=== PATIENT | male | born 1960 | race Caucasian/White ===

== ENCOUNTER 2018-02-01 09:44 | Emergency (ER) | payer OTHER ==
[~2018-02-01] VITALS: Ht 175.3 cm; Wt 79.4 kg
[~2018-02-01 09:44] MED LIST: ALBIPROI INH; ALBU90OI; ALBU90OI INH; ATOR10; ATOR40TA PO; BUPR100 PO; BUPR150ER PO; BUPR150T2; BUPR150T2 PO; Bactrim Ds Tab1 EACH PO; CEPH500 PO; CHLO25 PO; CHOLESTEROL MED; DIAZ5 PO; DIPH50 PO; EPIN.3I IM; FURO20 PO; HYDACE5 PO; IBUP400 PO; IBUP600 PO; Keflex500 MG PO; LEVFLO500 PO; LEVSOD88 PO; LISI20 PO; Lasix20 MG PO; MEDICAL MARIJUANA; METH10; METH10 PO; METH40; MORP30; MUPI2TO TOP; Micro-K10 MEQ PO; NAPR500 PO; OXYACE5T PO; OXYACE7.5T PO; OXYC10ER; OXYC5; PANT40; PRED20 PO; Percocet 5-3251 EACH PO; RANI150; RANI150 PO; RXOXYACE PO; RXSULTRIDS PO; SULTRIDS PO; TRAM50 PO; TRAZ50 PO; TRIA80TC TOP; Zanaflex4 M1 PO; [UNRECOGNIZED DRUG - REMARK]
[2018-02-01] MEDS ORDERED: STIOLTO RESPIMAT4 GM (10:05)
[2018-02-01] MEDS ORDERED: CHOL10002 (10:06)
[2018-02-01] MEDS ORDERED: GABA300 PO (10:07)
[2018-02-01] MEDS ORDERED: Naltrexone HCl50 MG PO (10:08)
[2018-02-01] MEDS ORDERED: LOSARTAN-HCTZ1 EACH PO (10:08)
[2018-02-01] MEDS ORDERED: FLUO10 PO (10:09)
[2018-02-01] MEDS ORDERED: ATOR10 PO (10:09)
[2018-02-01] MEDS ORDERED: LEVSOD100 PO (10:09)
[2018-02-01 10:46] LABS: BASOPHILS ABSOLUTE AUTO 0.06 K/mm3 (0.00-0.23); BASOPHILS PERCENT AUTO 1 % (0-2); EOSINOPHILS ABSOLUTE AUTO 0.08 K/mm3 (0.00-0.68); EOSINOPHILS PERCENT AUTO 1 % (0-6); Hematocrit 45.9 % (37.0-53.0); Hemoglobin 15.2 g/dL (13.5-17.5); IMMATURE GRAN ABSOLUTE AUTO 0.04 K/mm3 (0.00-0.10); IMMATURE GRAN PERCENT AUTO 1 % (0-1); LYMPHOCYTES ABSOLUTE AUTO 1.22 K/mm3 (0.84-5.20); LYMPHOCYTES PERCENT AUTO 15 % (21-46); MONOCYTES PERCENT AUTO 7 % (4-13); Mean Corpuscular HGB 33.3 pg (26.0-34.0); Mean Corpuscular HGB Conc 33.1 g/dL (31.5-36.5); Mean Corpuscular Volume 100 fL (80-100); Mean Platelet Volume 9.7 fL (9.1-12.4); NEUTROPHILS PERCENT AUTO 75 % (41-73); Platelet Count 385 K/mm3 (150-400); RDW Coefficient Variation 14.1 % (11.7-14.2); RDW Standard Deviation 52.3 fL (35.1-46.3); Red Blood Cell Count 4.57 M/mm3 (4.30-5.90)
[2018-02-01 10:57] LABS: Alanine Aminotransfer (ALT/SGP 21 U/L (12-78); Albumin, Blood 4.2 g/dL (3.4-5.0); Albumin/Globulin Ratio 1.2 (0.8-1.8); Alk Phos 43 U/L (50-136); Anion Gap 6 mmol/L (6-16); Aspartate Aminotrans (AST/SGOT 23 U/L (12-37); Bilirubin, Total 0.4 mg/dL (0.1-1.0); Blood Urea Nitrogen 12 mg/dL (8-24); CO2, Blood 29 mmol/L (21-32); Calcium, Blood 8.9 mg/dL (8.5-10.1); Chloride, Blood 103 mmol/L (98-108); Creatinine, Blood 0.86 mg/dL (0.60-1.20); Globulin, Blood 3.4 g/dL (2.2-4.0); Glomerular Filtration Rate >60 (60-); Glucose, Blood 106 mg/dL (70-99); Potassium, Blood 3.9 mmol/L (3.5-5.5); Sodium, Blood 138 mmol/L (136-145); Total Protein, Blood 7.6 g/dL (6.4-8.2); Troponin I <0.015 ng/mL (0.000-0.040)
[2018-02-01] MEDS ORDERED: ALBU90OI6 INH (11:39)
== END 2018-02-01 12:17 | disposition home or self-care (01) ==
LOC: ER 09:44
PROVIDERS: Emergency Medicine
DX: J44.9 Chronic obstructive pulmonary disease, unspecified (principal); R07.9 Chest pain, unspecified; F17.210 Nicotine dependence, cigarettes, uncomplicated; Z91.030 Bee allergy status; Z79.899 Other long term (current) drug therapy
CPT/HCPCS: 36415; 71046; 80053; 84484; 85025; 93005; 93010; 94640; 96374; 99283; J1885

== ENCOUNTER 2018-08-13 12:44 | Emergency (ER) | payer OTHER ==
[~2018-08-13] VITALS: Ht 177.8 cm; Wt 89.8 kg
[~2018-08-13 12:44] MED LIST changes: +ALBU90OI6 INH; +ATOR10 PO; +CHOL10002; +FLUO10 PO; +GABA300 PO; +LEVSOD100 PO; +LOSARTAN-HCTZ1 EACH PO; +Naltrexone HCl50 MG PO; +STIOLTO RESPIMAT4 GM
[2018-08-13] MEDS ORDERED: Pepcid20 MG PO (13:57)
[2018-08-13] MEDS ORDERED: Keflex500 MG PO (13:57)
[2018-08-13] MEDS ORDERED: Prednisone20 MG PO (13:57)
== END 2018-08-13 14:08 | disposition home or self-care (01) ==
LOC: ER 12:44
DX: R21 Rash and other nonspecific skin eruption (principal); Z91.030 Bee allergy status; Z79.899 Other long term (current) drug therapy; I10 Essential (primary) hypertension; F17.210 Nicotine dependence, cigarettes, uncomplicated
CPT/HCPCS: 99283; Q0163

== ENCOUNTER 2018-08-16 14:04 | Emergency (ER) | payer OTHER ==
[~2018-08-16] VITALS: Ht 177.8 cm; Wt 89.8 kg
[~2018-08-16 14:04] MED LIST changes: +Pepcid20 MG PO; +Prednisone20 MG PO
[2018-08-16 14:45] LABS: Influenza A Negative (NEGATIVE); Influenza B Negative (NEGATIVE)
[2018-08-16] MEDS ORDERED: METPRE4DP PO (14:49)
[2018-08-16] MEDS ORDERED: DEXT30SU PO (14:49)
[2018-08-16] MEDS ORDERED: Indomethacin50 MG PO (14:49)
[2018-08-16] MEDS ORDERED: Zithromax250 MG PO (14:52)
== END 2018-08-16 15:03 | disposition home or self-care (01) ==
LOC: ER 14:04
PROVIDERS: Physician Assistant
DX: J44.1 Chronic obstructive pulmonary disease with (acute) exacerbation (principal); J06.9 Acute upper respiratory infection, unspecified; Z91.030 Bee allergy status; Z79.899 Other long term (current) drug therapy; Z79.52 Long term (current) use of systemic steroids; F17.210 Nicotine dependence, cigarettes, uncomplicated
CPT/HCPCS: 71046; 87804; 99283-25

== ENCOUNTER 2020-03-20 14:59 | Emergency (ER) | payer MEDICARE, OTHER ==
[~2020-03-20] VITALS: Ht 175.3 cm; Wt 86.2 kg
[~2020-03-20 14:59] MED LIST changes: +DEXT30SU PO; +Indomethacin50 MG PO; +METPRE4DP PO; +Zithromax250 MG PO
[2020-03-20] MEDS ORDERED: SPIRIVA RESPIMAT4 G3 INH (15:50)
[2020-03-20] MEDS ORDERED: CEPH500 PO (15:50)
[2020-03-20] MEDS ORDERED: Ultram50 MG PO (16:07)
== END 2020-03-20 16:13 | disposition home or self-care (01) ==
LOC: ER 14:59
DX: S60.521A Blister (nonthermal) of right hand, initial encounter (principal); F17.210 Nicotine dependence, cigarettes, uncomplicated; Z91.030 Bee allergy status; Z79.899 Other long term (current) drug therapy; Z76.0 Encounter for issue of repeat prescription; X58.XXXA Exposure to other specified factors, initial encounter; Y93.89 Activity, other specified
CPT/HCPCS: 99282

== ENCOUNTER → 2022-11-20 | Outpatient (CLI) | payer MEDICARE, OTHER ==
[~2022-11-20] MED LIST changes: +SPIRIVA RESPIMAT4 G3 INH; +Ultram50 MG PO
[2022-11-20 13:47] LABS: BASOPHILS ABSOLUTE AUTO 0.06 K/mm3 (0.00-0.23); BASOPHILS PERCENT AUTO 1 % (0-2); EOSINOPHILS ABSOLUTE AUTO 0.11 K/mm3 (0.00-0.68); EOSINOPHILS PERCENT AUTO 1 % (0-6); Hematocrit 46.5 % (37.0-53.0); Hemoglobin 15.5 g/dL (13.5-17.5); IMMATURE GRAN ABSOLUTE AUTO 0.04 K/mm3 (0.00-0.10); IMMATURE GRAN PERCENT AUTO 0 % (0-1); LYMPHOCYTES ABSOLUTE AUTO 1.16 K/mm3 (0.84-5.20); LYMPHOCYTES PERCENT AUTO 12 % (21-46); MONOCYTES PERCENT AUTO 6 % (4-13); Mean Corpuscular HGB 33.5 pg (26.0-34.0); Mean Corpuscular HGB Conc 33.3 g/dL (31.5-36.5); Mean Corpuscular Volume 100 fL (80-100); NEUTROPHILS ABSOLUTE AUTO 7.38 K/mm3 (1.96-9.15); NEUTROPHILS PERCENT AUTO 79 % (41-73); Platelet Count 261 K/mm3 (150-400); RDW Coefficient Variation 14.1 % (11.7-14.2); RDW Standard Deviation 52.2 fL (35.1-46.3); Red Blood Cell Count 4.63 M/mm3 (4.30-5.90); White Blood Cell Count 9.35 K/mm3 (4.00-11.30)
[2022-11-20 13:58] LABS: Albumin, Blood 3.9 g/dL (3.4-5.0); Albumin/Globulin Ratio 1.2 (0.8-1.8); Bilirubin, Total 0.4 mg/dL (0.1-1.0); Bun/Creatinine Ratio 11.2 (12.0-20.0); Calcium, Blood 9.1 mg/dL (8.5-10.1); Creatinine, Blood 0.98 mg/dL (0.60-1.20); Globulin, Blood 3.2 g/dL (2.2-4.0); Potassium, Blood 4.4 mmol/L (3.5-5.5); Total Protein, Blood 7.1 g/dL (6.4-8.2)
== END | disposition home or self-care (01) ==
LOC: LAB 13:42 → LAB SHORT 13:42
PROVIDERS: Chiropractor
DX: I51.7 Cardiomegaly (principal); R06.09 Other forms of dyspnea
CPT/HCPCS: 80053; 83880; 84484; 85025; 85379

== ENCOUNTER 2023-02-10 02:07 | Emergency (ER) | payer MEDICARE, OTHER ==
[~2023-02-10] VITALS: Ht 175.3 cm; Wt 93.9 kg
[~2023-02-10 02:07] MED LIST changes: -CHOL10002; +EPIPEN0.3 MG/0.3 IM; +IBUP800 PO; +LEVSOD137 PO; +STIOLTO RESPIMAT4 G1 INH; -STIOLTO RESPIMAT4 GM; +THERA-D2000 UNIT PO; +TRELEGY ELLIPT1 EAC1 INH
[2023-02-10] MEDS ORDERED: LOSA25 PO (02:22)
[2023-02-10 04:11] LABS: BASOPHILS ABSOLUTE AUTO 0.04 K/mm3 (0.00-0.23); BASOPHILS PERCENT AUTO 0 % (0-2); EOSINOPHILS ABSOLUTE AUTO 0.09 K/mm3 (0.00-0.68); EOSINOPHILS PERCENT AUTO 1 % (0-6); Hematocrit 46.8 % (37.0-53.0); Hemoglobin 15.4 g/dL (13.5-17.5); IMMATURE GRAN ABSOLUTE AUTO 0.05 K/mm3 (0.00-0.10); IMMATURE GRAN PERCENT AUTO 1 % (0-1); LYMPHOCYTES PERCENT AUTO 6 % (21-46); MONOCYTES ABSOLUTE AUTO 0.71 K/mm3 (0.16-1.47); MONOCYTES PERCENT AUTO 7 % (4-13); Mean Corpuscular HGB 32.6 pg (26.0-34.0); Mean Corpuscular HGB Conc 32.9 g/dL (31.5-36.5); Mean Corpuscular Volume 99 fL (80-100); NEUTROPHILS ABSOLUTE AUTO 8.72 K/mm3 (1.96-9.15); NEUTROPHILS PERCENT AUTO 85 % (41-73); Platelet Count 222 K/mm3 (150-400); RDW Coefficient Variation 14.2 % (11.7-14.2); RDW Standard Deviation 52.3 fL (35.1-46.3); Red Blood Cell Count 4.73 M/mm3 (4.30-5.90); White Blood Cell Count 10.21 K/mm3 (4.00-11.30)
[2023-02-10 05:07] LABS: Alanine Aminotransfer (ALT/SGP 760 U/L (12-78); Albumin, Blood 3.8 g/dL (3.4-5.0); Albumin/Globulin Ratio 1.3 (0.8-1.8); Alk Phos 98 U/L (50-136); Anion Gap 7 mmol/L (6-16); Aspartate Aminotrans (AST/SGOT 1015 U/L (12-37); Bilirubin, Total 4.1 mg/dL (0.1-1.0); Blood Urea Nitrogen 16 mg/dL (8-24); Bun/Creatinine Ratio 22.9 (12.0-20.0); CO2, Blood 27 mmol/L (21-32); Calcium, Blood 9.1 mg/dL (8.5-10.1); Chloride, Blood 103 mmol/L (98-108); Glomerular Filtration Rate 105 (60-); Glucose, Blood 128 mg/dL (70-99); Potassium, Blood 4.4 mmol/L (3.5-5.5); Sodium, Blood 137 mmol/L (136-145); Total Protein, Blood 6.8 g/dL (6.4-8.2)
[2023-02-10] MEDS ORDERED: Norco 5-325 Ta1 EACH PO (14:11)
[2023-02-10] MEDS ORDERED: ONDA4ODT MM (14:11)
[2023-02-10] MEDS ORDERED: HYDR1TAB94 PO (14:25)
[2023-02-10 14:26] VITALS: BP 113/90
== END 2023-02-10 14:27 | disposition home or self-care (01) ==
LOC: ER 02:07
PROVIDERS: Student in an Organized Health Care Education/Training Program
DX: E80.6 Other disorders of bilirubin metabolism (principal); R74.01 Elevation of levels of liver transaminase levels; J44.9 Chronic obstructive pulmonary disease, unspecified; F17.210 Nicotine dependence, cigarettes, uncomplicated; Z91.030 Bee allergy status; Z88.8 Allergy status to other drugs, medicaments and biological substances; Z79.899 Other long term (current) drug therapy
CPT/HCPCS: 74181; 80053; 83690; 85025; 93005; 93010; 94640; 94644; 94664; 96374; 96376; 99284-25; J1170

== ENCOUNTER 2023-05-22 08:46 | Day surgery (SDC) | payer MEDICARE, OTHER ==
[~2023-05-22 08:46] MED LIST changes: +HYDR1TAB94 PO; +LOSA25 PO; +Norco 5-325 Ta1 EACH PO; +ONDA4ODT MM
== END 2023-05-22 22:42 | disposition home or self-care (01) ==
LOC: CT 08:46
DX: I71.23 Aneurysm of the descending thoracic aorta, without rupture (principal)
CPT/HCPCS: 71275; 74175; Q9967

== ENCOUNTER 2023-06-27 08:56 | Inpatient (IN) | payer MEDICARE, OTHER ==
[~2023-06-27] VITALS: Ht 177.8 cm; Wt 91.0 kg
[2023-06-27 09:29] LABS: BASOPHILS ABSOLUTE AUTO 0.07 K/mm3 (0.00-0.23); BASOPHILS PERCENT AUTO 1 % (0-2); EOSINOPHILS ABSOLUTE AUTO 0.05 K/mm3 (0.00-0.68); EOSINOPHILS PERCENT AUTO 0 % (0-6); Hematocrit 43.4 % (37.0-53.0); Hemoglobin 14.4 g/dL (13.5-17.5); IMMATURE GRAN ABSOLUTE AUTO 0.05 K/mm3 (0.00-0.10); IMMATURE GRAN PERCENT AUTO 0 % (0-1); LYMPHOCYTES ABSOLUTE AUTO 0.65 K/mm3 (0.84-5.20); LYMPHOCYTES PERCENT AUTO 5 % (21-46); MONOCYTES ABSOLUTE AUTO 0.62 K/mm3 (0.16-1.47); MONOCYTES PERCENT AUTO 5 % (4-13); Mean Corpuscular HGB 33.7 pg (26.0-34.0); Mean Corpuscular HGB Conc 33.2 g/dL (31.5-36.5); Mean Corpuscular Volume 102 fL (80-100); Mean Platelet Volume 9.8 fL (9.1-12.4); NEUTROPHILS ABSOLUTE AUTO 11.53 K/mm3 (1.96-9.15); NEUTROPHILS PERCENT AUTO 89 % (41-73); Platelet Count 226 K/mm3 (150-400); RDW Coefficient Variation 13.8 % (11.7-14.2); RDW Standard Deviation 52.1 fL (35.1-46.3); Red Blood Cell Count 4.27 M/mm3 (4.30-5.90); White Blood Cell Count 12.97 K/mm3 (4.00-11.30)
[2023-06-27 09:49] LABS: Albumin/Globulin Ratio 1.1 (0.8-1.8); Bilirubin, Total 0.5 mg/dL (0.1-1.0); Bun/Creatinine Ratio 19.3 (12.0-20.0); Calcium, Blood 8.9 mg/dL (8.5-10.1); Creatinine, Blood 0.67 mg/dL (0.60-1.20); Globulin, Blood 3.7 g/dL (2.2-4.0); Potassium, Blood 3.9 mmol/L (3.5-5.5); Total Protein, Blood 7.7 g/dL (6.4-8.2)
[2023-06-27 10:15] LABS: Influenza A, PCR NEGATIVE (NEGATIVE); Influenza B, PCR NEGATIVE (NEGATIVE); Resp Syncytial Virus, PCR NEGATIVE (NEGATIVE); SARS-Cov-2 (COVID-19) PCR, MMC NEGATIVE (NEGATIVE)
[2023-06-27 12:46] LABS: Base Excess Venous 3.7 mmol/L; Bicarbonate Venous 26.5 mmol/L (24.0-30.0); PCO2 Venous 50.3 mmHg (38-42); pH Blood Venous 7.37 (7.34-7.37)
[2023-06-27] MEDS ORDERED: AMLO10 PO (13:38)
[2023-06-27] MEDS ORDERED: ATORVASTATIN CA80 M1 PO (13:39)
[2023-06-27] MEDS ORDERED: [UNRECOGNIZED DRUG - OTHER] INH (13:40)
[2023-06-27] MEDS ORDERED: TRELEGY ELLIPTA INH (13:40)
[2023-06-27] MEDS ORDERED: IBU800 MG PO (13:41)
[2023-06-27] MEDS ORDERED: Synthroid/Levothroid PO (13:42)
[2023-06-27] MEDS ORDERED: LOSARTAN POTAS100 M1 PO (13:43)
[2023-06-27 16:23] VITALS: BP 123/68
--- NOTE | 2023-06-27 17:27 | NUR ---
LATE ENTRY/ER ADMIT 1550: RECEIVED REPORT FROM [employer] REPORTER. 1615: RECEIVED PT FROM ER VIA GURNEY TO ROOM 306. PT PLACED SELF IN BED, MADE COMFORTABLE & ORIENTED TO ROOM & UNIT ROUTINE. A&O X 4, PLEASANT & COOPERATIVE WITH ALL CARE. ON 2 L'S O2, SATS 88%, PT SOB. INCREASED O2 TO 5 L'S TIL PT COULD RECOVER FROM ADMIT PROCESS. USES A CANE FOR MOBILITY, PT BROUGHT OWN CANE, IN ROOM WITH PT. MED REC DONE. ADMIT COMPLETED.
[2023-06-27 20:42] VITALS: BP 143/83
[2023-06-28 03:56] VITALS: BP 138/115
[2023-06-28 04:41] LABS: BASOPHILS ABSOLUTE AUTO 0.02 K/mm3 (0.00-0.23); BASOPHILS PERCENT AUTO 0 % (0-2); EOSINOPHILS PERCENT AUTO 0 % (0-6); Hematocrit 43.9 % (37.0-53.0); Hemoglobin 14.8 g/dL (13.5-17.5); IMMATURE GRAN ABSOLUTE AUTO 0.08 K/mm3 (0.00-0.10); IMMATURE GRAN PERCENT AUTO 1 % (0-1); LYMPHOCYTES ABSOLUTE AUTO 0.68 K/mm3 (0.84-5.20); LYMPHOCYTES PERCENT AUTO 5 % (21-46); MONOCYTES ABSOLUTE AUTO 0.22 K/mm3 (0.16-1.47); MONOCYTES PERCENT AUTO 1 % (4-13); Mean Corpuscular HGB 34.3 pg (26.0-34.0); Mean Corpuscular HGB Conc 33.7 g/dL (31.5-36.5); Mean Corpuscular Volume 102 fL (80-100); NEUTROPHILS ABSOLUTE AUTO 14.28 K/mm3 (1.96-9.15); NEUTROPHILS PERCENT AUTO 94 % (41-73); Platelet Count 226 K/mm3 (150-400); RDW Coefficient Variation 13.7 % (11.7-14.2); RDW Standard Deviation 52.2 fL (35.1-46.3); Red Blood Cell Count 4.31 M/mm3 (4.30-5.90); White Blood Cell Count 15.28 K/mm3 (4.00-11.30)
[2023-06-28 05:05] LABS: Bun/Creatinine Ratio 27.4 (12.0-20.0); Calcium, Blood 9.2 mg/dL (8.5-10.1); Creatinine, Blood 0.66 mg/dL (0.60-1.20); Potassium, Blood 3.9 mmol/L (3.5-5.5)
[2023-06-28 05:54] VITALS: BP 128/91
--- NOTE | 2023-06-28 06:34 | NUR ---
SHIFT SUMMARY PT IS A&OX4. NORMOTENSIVE, HR IN THE 90'S, AFEBRILE, 02 >92% ON 3-6L NC. C/O CHEST PAIN R/T COUGHING, MANAGED WITH PRN'S. DYSPNIC WITH EXERTION. EDUCATED PT ON THE IMPORTANCE OF SMOKING CESSATION. PT OTHERWISE DENIES ANY OTHER PAIN AND N/V. INDEPENDENT TO BR. PT SLEPT WELL T/O NOC. CALL LIGHT WITHIN REACH. BED IN LOWEST POSITION. FIRE SAFETY CHECKS COMPLETED
[2023-06-28 07:42] VITALS: BP 146/83
--- NOTE | 2023-06-28 16:13 | NUR ---
SHIFT SUMMARY PT AWAKE DURING SHIFT REPORT, SITTING UP TO EOB. PLEASANT AND CO-OP WITH CARE. DR VAZ IN EARLY TO SEE PT AND DISCUSS PLAN OF CARE. PT REPORTED FEELING MUCH BETTER THAN YESTERDAY. STILL SOME SOB WITH EXERTION. C/O NIELSEN AND CHEST PAIN R/T COUGHING. NEW ORDERS PLACED. PT MEDICATED WITH TYLENOL EARLY FOR NIELSEN, REPORTING IT EFFECTIVE. PT LATER MEDICATED WITH TORADOL FOR C/O CHEST PAIN. PT ABLE TO SLEEP SOME THIS AFTERNOON. INDEPENDENT TO EOB TO SIT UP AND WATCH TV. USES URINAL AT BS NEEDED. USES CANE AT BASELINE WITH SBA TO WALK INTO BTM. DENIED FURTHER NEEDS. CALL LT IN REACH.
[2023-06-28 16:18] VITALS: BP 132/69
[2023-06-28 20:16] VITALS: BP 125/82
[2023-06-29 05:14] VITALS: BP 115/67
--- NOTE | 2023-06-29 06:24 | NUR ---
SHIFT SUMMARY PT IS A&OX4, VERY ANXIOUS. NORMOTENSIVE, HR IN THE 90'S, AFEBRILE, O2 SATS 95% ON 4L NC. TREATED CHEST PAIN R/T COUGHING ONCE WITH PRN TORADOL. PT SLEPT T/O NOC. DYSPNIC WITH EXERTION. DENIES ANY CHEST PRESSURE/PAIN OTHER THAN FROM COUGHING. INDEPENDENT TO BR WITH CANE. VOIDING IN URINAL AT BEDSIDE OR AMBULATING TO BR. BM X1 THIS SHIFT. BED IN LOWEST POSITION, CALL LIGHT WITHIN REACH. FIRE SAFETY CHECKS COMPLETED
[2023-06-29 07:11] VITALS: BP 126/63
[2023-06-29] MEDS ORDERED: AZIT250 PO (11:37)
[2023-06-29] MEDS ORDERED: PRED20 PO (11:38)
--- NOTE | 2023-06-29 14:21 | NUR ---
PT AWAKE, SITTING UP TO EOB, DURING SHIFT REPORT. PT REPORTED CONTINUED IMPROVEMENT, HOPING TO GO HOME TODAY. PT REPORTED PC TODAY. LUNGS T/O WITH A FEW SCATTERED INSP/EXP WHEEZES IN MOST LOBES. IV ABX GIVEN PER EMAR. DR VAZ IN TO SEE PT, DISCUSSED PLAN OF CARE. D/C ORDERS PLACED. IV SITE D/C'D WNL'S. PT ABLE TO DRESS HIMSELF. D/C INSTRUCTIONS REVIEWED WITH PT; VERBALIZED UNDERSTANDING. PT ASSISTED OUT TO P/U VIA W/C WITH BELONGINGS IN HAND.
== END 2023-06-29 13:50 | disposition home or self-care (01) | DRG 189 ==
LOC: ER 08:56 → MEDS 13:26
PROVIDERS: Student in an Organized Health Care Education/Training Program; ADMIT Internal Medicine Endocrinology, Diabetes & Metabolism
DX: J96.21 Acute and chronic respiratory failure with hypoxia (principal); I42.8 Other cardiomyopathies; J44.1 Chronic obstructive pulmonary disease with (acute) exacerbation; F41.8 Other specified anxiety disorders; E06.3 Autoimmune thyroiditis; M81.0 Age-related osteoporosis without current pathological fracture; I11.9 Hypertensive heart disease without heart failure; F17.200 Nicotine dependence, unspecified, uncomplicated; Z99.81 Dependence on supplemental oxygen; Z88.8 Allergy status to other drugs, medicaments and biological substances; Z96.643 Presence of artificial hip joint, bilateral; Z79.51 Long term (current) use of inhaled steroids; Z79.890 Hormone replacement therapy; Z11.52 Encounter for screening for COVID-19
CPT/HCPCS: 0241U; 36415; 71045; 80048; 80053; 82803; 83880; 84145; 84484; 85025; 93005; 93010; 94640; 94644; 94645; 94664; 94760; 96365; 96367; 96375; 99285-25; A9270; J0456; J0696; J1650; J1885; J1940; J2930; J7050

== ENCOUNTER 2024-06-29 22:42 | Inpatient (IN) | payer MEDICARE, OTHER ==
[~2024-06-29] VITALS: Ht 177.8 cm; Wt 88.5 kg
[~2024-06-29 22:42] MED LIST changes: +ALBU2.5V5 INH; +AMLO10 PO; +AMOX-CLAV 875-1 EAC5 PO; +ATORVASTATIN CA80 M1 PO; +AZIT250 PO; +Atarax10 MG; +Budeprion Xl300 MG PO; +CLOP75 PO; +DULO30 PO; +HYDHCL25 PO; +IBU800 MG PO; +IPRAT-ALBUT 0.5-3 ML INH; +LOSARTAN POTAS100 M1 PO; +Nicoderm Cq1 EAC1 TOP; +OXYM.05NI; +Prednisone10 MG PO; +Synthroid/Levothroid PO; +TRELEGY ELLIPTA INH; +VISBIOME 112.51 EACH PO; +[UNRECOGNIZED DRUG - OTHER] INH
[2024-06-29 23:19] LABS: BASOPHILS ABSOLUTE AUTO 0.02 K/mm3 (0.00-0.23); BASOPHILS PERCENT AUTO 0 % (0-2); EOSINOPHILS ABSOLUTE AUTO 0.01 K/mm3 (0.00-0.68); EOSINOPHILS PERCENT AUTO 0 % (0-6); Hematocrit 40.4 % (37.0-53.0); Hemoglobin 13.5 g/dL (13.5-17.5); IMMATURE GRAN ABSOLUTE AUTO 0.08 K/mm3 (0.00-0.10); IMMATURE GRAN PERCENT AUTO 1 % (0-1); LYMPHOCYTES ABSOLUTE AUTO 0.47 K/mm3 (0.84-5.20); LYMPHOCYTES PERCENT AUTO 4 % (21-46); MONOCYTES PERCENT AUTO 7 % (4-13); Mean Corpuscular HGB 34.6 pg (26.0-34.0); Mean Corpuscular HGB Conc 33.4 g/dL (31.5-36.5); Mean Corpuscular Volume 104 fL (80-100); Mean Platelet Volume 9.2 fL (9.1-12.4); NEUTROPHILS ABSOLUTE AUTO 11.68 K/mm3 (1.96-9.15); NEUTROPHILS PERCENT AUTO 89 % (41-73); Platelet Count 172 K/mm3 (150-400); RDW Coefficient Variation 14.3 % (11.7-14.2); RDW Standard Deviation 55.1 fL (35.1-46.3); White Blood Cell Count 13.16 K/mm3 (4.00-11.30)
[2024-06-29] MEDS ORDERED: LORazepam 2 MG/ML 1ML Injection IV ONE (23:30)
[2024-06-29] MEDS ORDERED: NS 1,000 ML IV SCH (23:35)
[2024-06-29] MEDS ORDERED: Cefepime HCl 1,000 MG in NS 100 ML IV ONE (23:35)
[2024-06-29] MEDS ORDERED: Mag Hydrox/AL Hydrox/Simeth 30 ML UDC PO ONE (23:55)
[2024-06-29] MEDS ORDERED: FentaNYL Citrate 50 MCG/ML 2 ML Injection IV ONE (23:55)
[2024-06-29] MEDS ORDERED: Famotidine 10 MG/ML 2ML Vial IV ONE (23:55)
[2024-06-29 23:57] LABS: Albumin, Blood 3.1 g/dL (3.4-5.0); Albumin/Globulin Ratio 1.1 (0.8-1.8); Bilirubin, Total 0.4 mg/dL (0.1-1.0); Bun/Creatinine Ratio 17.1 (12.0-20.0); Calcium, Blood 8.2 mg/dL (8.5-10.1); Creatinine, Blood 0.88 mg/dL (0.60-1.20); Globulin, Blood 2.8 g/dL (2.2-4.0); Magnesium, Blood 2.1 mg/dL (1.6-2.4); Phosphorus, Blood 3.8 mg/dL (2.5-4.9); Thyroid Stimulating Hormone 2.36 uIU/mL (0.360-4.800); Total Protein, Blood 5.9 g/dL (6.4-8.2)
[2024-06-30] MEDS ORDERED: Ipratropium/Albuterol SulF 2.5-0.5MG/3 ML Amp INH ONE (00:15)
[2024-06-30 00:19] LABS: Influenza B, PCR NEGATIVE (NEGATIVE); Resp Syncytial Virus, PCR NEGATIVE (NEGATIVE); SARS-Cov-2 (COVID-19) PCR, MMC NEGATIVE (NEGATIVE)
[2024-06-30 00:46] LABS: Influenza A, PCR POSITIVE (NEGATIVE)
[2024-06-30] MEDS ORDERED: Ondansetron 4 MG TAB PO PRN (01:40)
[2024-06-30] MEDS ORDERED: Metoclopramide HCl 5MG / ML 2ML Vial IV PRN (01:40)
[2024-06-30] MEDS ORDERED: FLU VACC TS2024-25(6MOS UP)/PF 45 MCG/0.5 ML SYRINGE IM ONE ×2 (01:40→13:20)
[2024-06-30] MEDS ORDERED: NS 1,000 ML IV SCH (02:00)
[2024-06-30] MEDS ORDERED: Oseltamivir Phosphate 75 MG Cap PO SCH (02:00)
[2024-06-30] MEDS ORDERED: Albuterol 2.5 MG/3 ML VIAL INH PRN (02:05)
[2024-06-30] MEDS ORDERED: HyDROXyzine HCl 25 MG Tab PO PRN (02:05)
[2024-06-30] MEDS ORDERED: Mometasone/Formoterol MDI 100/5 mcg 13 GM INH SCH (03:00)
[2024-06-30] MEDS ORDERED: Albuterol HFA200 ACT/6.7 GM INH INH PRN (03:00)
[2024-06-30] MEDS ORDERED: Ipratropium Bromide INH 0.02% 0.5 mg/2.5ML Vial INH SCH (03:05)
[2024-06-30 03:51] VITALS: BP 108/67
[2024-06-30 05:18] LABS: BASOPHILS ABSOLUTE AUTO 0.01 K/mm3 (0.00-0.23); BASOPHILS PERCENT AUTO 0 % (0-2); EOSINOPHILS PERCENT AUTO 0 % (0-6); Hematocrit 40.4 % (37.0-53.0); Hemoglobin 13.3 g/dL (13.5-17.5); IMMATURE GRAN ABSOLUTE AUTO 0.06 K/mm3 (0.00-0.10); IMMATURE GRAN PERCENT AUTO 1 % (0-1); LYMPHOCYTES ABSOLUTE AUTO 0.19 K/mm3 (0.84-5.20); LYMPHOCYTES PERCENT AUTO 2 % (21-46); MONOCYTES ABSOLUTE AUTO 0.24 K/mm3 (0.16-1.47); MONOCYTES PERCENT AUTO 3 % (4-13); Mean Corpuscular HGB 34.4 pg (26.0-34.0); Mean Corpuscular HGB Conc 32.9 g/dL (31.5-36.5); Mean Corpuscular Volume 104 fL (80-100); Mean Platelet Volume 9.6 fL (9.1-12.4); NEUTROPHILS ABSOLUTE AUTO 9.07 K/mm3 (1.96-9.15); NEUTROPHILS PERCENT AUTO 95 % (41-73); Platelet Count 165 K/mm3 (150-400); RDW Coefficient Variation 14.5 % (11.7-14.2); RDW Standard Deviation 55.8 fL (35.1-46.3); Red Blood Cell Count 3.87 M/mm3 (4.30-5.90); White Blood Cell Count 9.57 K/mm3 (4.00-11.30)
[2024-06-30 05:30] LABS: Albumin, Blood 2.9 g/dL (3.4-5.0); Albumin/Globulin Ratio 1.1 (0.8-1.8); Bilirubin, Total 0.4 mg/dL (0.1-1.0); Bun/Creatinine Ratio 18.1 (12.0-20.0); Calcium, Blood 7.9 mg/dL (8.5-10.1); Creatinine, Blood 0.77 mg/dL (0.60-1.20); Globulin, Blood 2.6 g/dL (2.2-4.0); Potassium, Blood 4.1 mmol/L (3.5-5.5); Total Protein, Blood 5.5 g/dL (6.4-8.2)
[2024-06-30] MEDS ORDERED: Ipratropium/Albuterol SulF 2.5-0.5MG/3 ML Amp INH SCH ×2 (06:00)
[2024-06-30] MEDS ORDERED: Levothyroxine Sodium 0.15 MG Tab PO SCH (06:00)
[2024-06-30 07:26] VITALS: BP 118/80
[2024-06-30] MEDS ORDERED: methylPREDNISolone acetate 80 MG/ML 1MLVIAL IM SCH (08:00)
[2024-06-30] MEDS ORDERED: MethylPREDNISolone Sod Succ 125 MG Vial IV SCH (08:00)
--- NOTE | 2024-06-30 08:19 | NUR ---
SHIFT SUMMARY: PT ARRIVES TO FLOOR FROM THE ER AROUND 0345 VIA GURNEY. PT ROLLS HIMSELF ONTO THE HOSPITAL BED. PT IS VERY LETHARGIC AND FALLS ASLEEP MID SENTENCE. VSS ON 8L HIGH FLOW. PER TELEMETRY PT IS SR @ 80. X1 ASSIST TO STAND AT BEDSIDE FOR PT TO USE THE URINAL. PT IS VERY UNSTEADY. DROPLET PRECAUTIONS INITIATED FOR FLU. BED IN LOWEST POSITION, CALL LIGHT WITHIN REACH. BED ALARM SET FOR PT'S SAFETY.
[2024-06-30] MEDS ORDERED: Atorvastatin 40 MG Tab PO SCH (09:00)
[2024-06-30] MEDS ORDERED: Nicotine 14 MG PATCH TOP SCH (09:00)
[2024-06-30] MEDS ORDERED: Losartan Potassium 50 MG Tab PO SCH (09:00)
[2024-06-30] MEDS ORDERED: DULoxetine HCL 30 MG Cap DR PO SCH (09:00)
[2024-06-30] MEDS ORDERED: AmLODIPine Besylate 5 MG Tab PO SCH (09:00)
[2024-06-30] MEDS ORDERED: Enoxaparin 40 MG/0.4 ML SYR SC SCH (09:00)
[2024-06-30] MEDS ORDERED: Clopidogrel Bisulfate 75 MG Tab PO SCH (09:00)
[2024-06-30] MEDS ORDERED: Docusate Sodium 100 MG Cap PO SCH (09:00)
[2024-06-30] MEDS ORDERED: Naltrexone HCl 50 MG Tab PO SCH (09:00)
--- NOTE | 2024-06-30 11:50 | NUR ---
"Spiritual Care | Pt. request Pt. is awake in bed when he welcomes my visit. Pt. is unsettled about the circumstances of his home life, and a lenghty life review was facilitated. Pt. displayed evidence of trust. The Pt. wanted to get contact information for Pastor Neil in [place]. Prayed with the Pt. Will attempt to contact pastor Neil."
[2024-06-30 16:05] VITALS: BP 99/62
--- NOTE | 2024-06-30 17:38 | NUR ---
SHIFT SUMMARY: PT A/O X4. PLEASANT AND COOPERATIVE WITH CARE. PT CURRENTLY ON 8L. VERBLA ORDER FROM DR. GOODWIN TO WEAN 02. RT AWARE OF ORDER. PT ON TELE RUNNING SINUS RHYTHM. DROPLET PRECAUTIONS IN PLACE FOR INFLUENZA. PT RECEIVED FLU SHOT THIS SHIFT. ANTI ANXIETY MEDS GIVEN ONCE THIS SHIFT. PT HAS SLURRED SPEECH AND DIFFICULT TO UNDERSTAND. CALL LIGHT IN REACH. BED IN LOWEST POSITION.
[2024-06-30 19:28] VITALS: BP 111/79
[2024-06-30] MEDS ORDERED: NASAL SPRAY88 ML (20:09)
[2024-06-30] MEDS ORDERED: SYNTHROID125 MC1 PO (20:10)
[2024-06-30] MEDS ORDERED: SYNTHROID25 M12 PO (20:11)
[2024-07-01 04:02] VITALS: BP 99/60
--- NOTE | 2024-07-01 04:44 | NUR ---
SHIFT SUMMARY PATIENT HAD ANXIETY X ONE AND ATARAX GIVEN PER EMAR. AXOX 4 AND ONE ASSIST. PIV INTACT. TELE MONITOR NSR 92 BBB. RT TURNED 8 L O2 DOWN TO 6L O2 NC. RT IN FOR BREATHING TX. DENIES CHEST PAIN, SOB, AND N/V. VSS/AFEBRILE. SLEPT ON OFF T/O SHIFT. CALL LIGHT IN REACH. BED IN LOWEST POSITION. WILL CONTINUE TO MONITOR UNTIL DAY SHIFT NURSE ASSUMES CARE.
[2024-07-01 07:36] VITALS: BP 121/78
[2024-07-01] MEDS ORDERED: OSEL75CA PO (12:36)
[2024-07-01] MEDS ORDERED: Prednisone10 MG PO (12:38)
[2024-07-01 15:48] VITALS: BP 139/85
--- NOTE | 2024-07-01 17:34 | NUR ---
KRISTAL REIVEWED WITH PT. HE VERBALIZED UNDERSTANDING MEDS AND INST. AIDE TO PPULL TELE AND IV. PT WHEELED TO DOOR BY AIDE AT [id number]
== END 2024-07-01 17:30 | disposition home or self-care (01) | DRG 871 ==
LOC: ER 22:42 → MEDS 06-30 01:35 → ERHOLD 06-30 01:35 → MEDS 06-30 03:42
PROVIDERS: Emergency Medicine; Student in an Organized Health Care Education/Training Program; ADMIT Internal Medicine
DX: A41.89 Other specified sepsis (principal); J10.00 Influenza due to other identified influenza virus with unspecified type of pneumonia; J96.21 Acute and chronic respiratory failure with hypoxia; E87.1 Hypo-osmolality and hyponatremia; J44.1 Chronic obstructive pulmonary disease with (acute) exacerbation; J44.0 Chronic obstructive pulmonary disease with (acute) lower respiratory infection; F10.139 Alcohol abuse with withdrawal, unspecified; M81.0 Age-related osteoporosis without current pathological fracture; F41.8 Other specified anxiety disorders; R65.20 Severe sepsis without septic shock; I10 Essential (primary) hypertension; Z96.643 Presence of artificial hip joint, bilateral; E78.5 Hyperlipidemia, unspecified; Z90.89 Acquired absence of other organs; Z98.890 Other specified postprocedural states; E03.9 Hypothyroidism, unspecified; Z90.49 Acquired absence of other specified parts of digestive tract; F17.210 Nicotine dependence, cigarettes, uncomplicated; Z88.8 Allergy status to other drugs, medicaments and biological substances; Z91.038 Other insect allergy status; Z79.899 Other long term (current) drug therapy; Z79.02 Long term (current) use of antithrombotics/antiplatelets; Z79.890 Hormone replacement therapy; Z71.41 Alcohol abuse counseling and surveillance of alcoholic; Z23 Encounter for immunization
CPT/HCPCS: 0241U; 36415; 71045; 80053; 80320; 83605; 83735; 84100; 84145; 84443; 84484; 85025; 85379; 87040; 90656; 93005; 93010; 94640; 94664; 94762; 96361; 96365; 96375; 99285-25; A9270; J0692; J1650; J2060; J2919; J7030

== ENCOUNTER 2024-07-02 12:54 | Inpatient (IN) | payer MEDICARE, OTHER ==
[~2024-07-02] VITALS: Ht 175.3 cm; Wt 83.7 kg
[~2024-07-02 12:54] MED LIST changes: +NASAL SPRAY88 ML; +OSEL75CA PO; +SYNTHROID125 MC1 PO; +SYNTHROID25 M12 PO
[2024-07-02 14:36] LABS: BASOPHILS ABSOLUTE AUTO 0.01 K/mm3 (0.00-0.23); BASOPHILS PERCENT AUTO 0 % (0-2); EOSINOPHILS PERCENT AUTO 0 % (0-6); Hematocrit 41.9 % (37.0-53.0); Hemoglobin 13.7 g/dL (13.5-17.5); IMMATURE GRAN ABSOLUTE AUTO 0.07 K/mm3 (0.00-0.10); IMMATURE GRAN PERCENT AUTO 1 % (0-1); LYMPHOCYTES ABSOLUTE AUTO 0.74 K/mm3 (0.84-5.20); LYMPHOCYTES PERCENT AUTO 5 % (21-46); MONOCYTES ABSOLUTE AUTO 0.58 K/mm3 (0.16-1.47); MONOCYTES PERCENT AUTO 4 % (4-13); Mean Corpuscular HGB 34.2 pg (26.0-34.0); Mean Corpuscular HGB Conc 32.7 g/dL (31.5-36.5); Mean Corpuscular Volume 105 fL (80-100); Mean Platelet Volume 9.5 fL (9.1-12.4); NEUTROPHILS ABSOLUTE AUTO 13.72 K/mm3 (1.96-9.15); NEUTROPHILS PERCENT AUTO 91 % (41-73); Platelet Count 158 K/mm3 (150-400); RDW Coefficient Variation 14.2 % (11.7-14.2); RDW Standard Deviation 54.9 fL (35.1-46.3); Red Blood Cell Count 4.01 M/mm3 (4.30-5.90); White Blood Cell Count 15.12 K/mm3 (4.00-11.30)
[2024-07-02 14:58] LABS: Albumin, Blood 3.2 g/dL (3.4-5.0); Bilirubin, Total 0.4 mg/dL (0.1-1.0); Bun/Creatinine Ratio 18.7 (12.0-20.0); Calcium, Blood 9.1 mg/dL (8.5-10.1); Creatinine, Blood 0.64 mg/dL (0.60-1.20); Globulin, Blood 3.1 g/dL (2.2-4.0); Potassium, Blood 4.1 mmol/L (3.5-5.5); Total Protein, Blood 6.3 g/dL (6.4-8.2)
[2024-07-02] MEDS ORDERED: Ipratropium/Albuterol SulF 2.5-0.5MG/3 ML Amp INH ONE (18:05)
[2024-07-02] MEDS ORDERED: MethylPREDNISolone Sod Succ 125 MG Vial IV ONE (18:05)
[2024-07-02] MEDS ORDERED: DiphenhydrAMINE HCl 50 MG/ML 1ML Vial IV ONE (18:30)
[2024-07-02] MEDS ORDERED: NS 1,000 ML IV SCH (18:30)
[2024-07-02] MEDS ORDERED: Prochlorperazine Edisylate 10 mg Vial IV ONE (18:30)
[2024-07-02] MEDS ORDERED: Dexamethasone Sod Phos 10 MG/ML 1ML VIAL IV ONE (18:30)
[2024-07-02] MEDS ORDERED: Acetaminophen 500 MG Tab PO ONE (18:30)
[2024-07-02] MEDS ORDERED: FLU VACC TS2024-25(6MOS UP)/PF 45 MCG/0.5 ML SYRINGE IM ONE (21:20)
[2024-07-02] MEDS ORDERED: Ondansetron HCl 2 MG / ML 2ML Vial IV PRN (21:20)
[2024-07-02] MEDS ORDERED: Ipratropium/Albuterol SulF 2.5-0.5MG/3 ML Amp INH SCH (21:25)
[2024-07-02] MEDS ORDERED: Albuterol 2.5 MG/3 ML VIAL INH PRN (21:25)
[2024-07-02] MEDS ORDERED: Azithromycin 500 MG in NS 250 ML IV SCH (21:46)
[2024-07-02 21:55] LABS: Base Excess Venous 13.9 mmol/L; Bicarbonate Venous 34.7 mmol/L (24.0-30.0); pH Blood Venous 7.41 (7.34-7.37)
[2024-07-02] MEDS ORDERED: Oseltamivir Phosphate 75 MG Cap PO SCH (22:00)
--- NOTE | 2024-07-02 23:10 | NUR ---
NEW ADMIT. PATIENT ADMITTED TO ROOM 340 FROM THE ER. PATIENT ARRIVED VIA 1P TRANSPORT AND RNEY. PATIENT ABLE TO SELF AMBULATE FROM [facility] TO HOSPITAL BED. PATIENT ARRIVED TO ROOM c 2 PERSONAL BELONGINGS BAGS. PATIENT ARRIVED ON 6L'S O2 VIA NASAL CANNULA. THIS RN TO ASSUME PATIENT CARE.
[2024-07-02 23:26] VITALS: BP 150/89
[2024-07-03] MEDS ORDERED: MethylPREDNISolone Sod Succ 125 MG Vial IV SCH
--- NOTE | 2024-07-03 | NUR ---
PATIENT REPORTS TO THIS RN THAT HE LEFT HIS A WEEK AGO D/T CHEATING AND HE IS CURRENTLY LIVING IN HIS VEHICLE WITH NO ELECTRICITY AND NO OXYGEN OTHER THAN THE SMALL PORTABLE OXYGEN TANK THAT PATIENT HAS IN ROOM. PATIENT IS EMOTIONAL AND ANXIOUS IN REGARDS TO THIS SITUATION PATIENT HAS A 16 YEAR OLD SON WITH HIS . HE HAS NOT BEEN ABLE TO GET HIS MEDICATION SINCE BEING DISCHARGED ON A HOLIDAY. PATIENT WOULD BENEFIT FROM CASE MANAGMENT AND OUT PATIENT SERVICES.
[2024-07-03] MEDS ORDERED: LORazepam 2 MG/ML 1ML Injection IV ONE (01:00)
--- NOTE | 2024-07-03 04:20 | NUR ---
SHIFT SUMMARY PATIENT IS A&OX4. PATIENT IS ON 4L'S VIA NASAL CANNULA SATTING >93%. PATIENT REPORTS SOB WITH EXERTION. PATIENT IS ABLE TO MAKE HIS NEEEDS KNOWN. PATIENT IS PLEASANT AND COOPERATIVE WITH CARE. PATIENT IS HAVING INCREASED ANXIETY D/T RECENT SOCIAL/HOME SITUATION. PATIENT ORIENTED TO ROOM, PATIENT CALLS APPROPRIATELY AND IS ABLE TO MAKE HIS NEEDS KNOWN. PATIENT IS CURRENTLY LIVING IN VEHICLE. BED IS LOCKED IN THE LOWEST POSITION WITH CALL LIGHT IN REACH. CARE IS ONGOING.
[2024-07-03 05:10] VITALS: BP 152/92
[2024-07-03 05:24] LABS: Hematocrit 41.8 % (37.0-53.0); Hemoglobin 13.3 g/dL (13.5-17.5); Mean Corpuscular HGB 33.7 pg (26.0-34.0); Mean Corpuscular HGB Conc 31.8 g/dL (31.5-36.5); Mean Corpuscular Volume 106 fL (80-100); Mean Platelet Volume 9.2 fL (9.1-12.4); Platelet Count 144 K/mm3 (150-400); RDW Coefficient Variation 14.2 % (11.7-14.2); Red Blood Cell Count 3.95 M/mm3 (4.30-5.90); White Blood Cell Count 7.54 K/mm3 (4.00-11.30)
[2024-07-03] MEDS ORDERED: HyDROXyzine HCl 25 MG Tab PO PRN (05:30)
[2024-07-03 05:51] LABS: Bun/Creatinine Ratio 23.6 (12.0-20.0); Calcium, Blood 8.4 mg/dL (8.5-10.1); Creatinine, Blood 0.68 mg/dL (0.60-1.20); Potassium, Blood 4.4 mmol/L (3.5-5.5)
[2024-07-03] MEDS ORDERED: Levothyroxine Sodium 0.15 MG Tab PO SCH (06:00)
[2024-07-03 07:19] VITALS: BP 134/88
[2024-07-03] MEDS ORDERED: Atorvastatin 40 MG Tab PO SCH (09:00)
[2024-07-03] MEDS ORDERED: Clopidogrel Bisulfate 75 MG Tab PO SCH (09:00)
[2024-07-03] MEDS ORDERED: Losartan Potassium 50 MG Tab PO SCH (09:00)
[2024-07-03] MEDS ORDERED: GuaiFENesin 600 MG TabCR PO SCH (09:00)
[2024-07-03] MEDS ORDERED: AmLODIPine Besylate 5 MG Tab PO SCH (09:00)
[2024-07-03] MEDS ORDERED: Acetaminophen 325 MG TABLET PO PRN (11:40)
[2024-07-03] MEDS ORDERED: Nicotine 14 MG PATCH TOP SCH (13:35)
[2024-07-03 15:01] VITALS: BP 118/71
--- NOTE | 2024-07-03 18:09 | NUR ---
SHIFT SUMMARY PT CONT LEVEL OF CARE WITH NO ACUTE CHANGES NOTED. PT IS A&OX4 AND INDEPENDENT WITH TRANSFERS. PT CONT TO REMAIN IN ISOLATION. PT REMAINS ON 3L/NC AND DENIES SOB OR DIFFICULTY BREATHING THIS SHIFT. PT NOTED TO BE VERY ANXIOUS AND HAS RECEIVED PRN MEDICATION THIS SHIFT. NICOTINE PATCH PLACED TO L UPPER ARM.
[2024-07-03 19:17] VITALS: BP 139/74
[2024-07-03] MEDS ORDERED: Lactobacil 2-S.Thermo-Bifido 1 1 Cap PO SCH (21:00)
[2024-07-04 03:09] VITALS: BP 138/90
--- NOTE | 2024-07-04 03:45 | NUR ---
A&Ox4, VSS, O2 sat=99% on 3LO2, medicated 2x for anxiety and 2x for c/o headache, patient is indep w/cares, able to make needs known, watching TV at this time, will cont to monitor until report given to oncoming nurse.
[2024-07-04 07:54] VITALS: BP 142/93
[2024-07-04] MEDS ORDERED: Nicotine 14 MG PATCH TOP SCH (09:00)
[2024-07-04] MEDS ORDERED: Polyethylene Glycol 3350 17 gm PO PRN (14:55)
[2024-07-04] MEDS ORDERED: Docusate Sodium/Senna 1 Tab PO PRN (14:55)
[2024-07-04 15:59] VITALS: BP 139/75
[2024-07-04] MEDS ORDERED: MethylPREDNISolone Sod Succ 125 MG Vial IV SCH (16:00)
--- NOTE | 2024-07-04 18:42 | NUR ---
SHIFT SUMMARY PT CONT LEVEL OF CARE WITH NO ACUTE CHANGES NOTED. PT TITRATED DOWN TO 3L/NC THIS SHIFT.
[2024-07-04 19:28] VITALS: BP 141/87
[2024-07-05 04:25] VITALS: BP 120/83
[2024-07-05 05:31] LABS: BASOPHILS PERCENT AUTO 0 % (0-2); EOSINOPHILS PERCENT AUTO 0 % (0-6); Hematocrit 37.3 % (37.0-53.0); Hemoglobin 12.2 g/dL (13.5-17.5); IMMATURE GRAN ABSOLUTE AUTO 0.03 K/mm3 (0.00-0.10); IMMATURE GRAN PERCENT AUTO 0 % (0-1); LYMPHOCYTES ABSOLUTE AUTO 0.35 K/mm3 (0.84-5.20); LYMPHOCYTES PERCENT AUTO 4 % (21-46); MONOCYTES ABSOLUTE AUTO 0.14 K/mm3 (0.16-1.47); MONOCYTES PERCENT AUTO 2 % (4-13); Mean Corpuscular HGB 33.8 pg (26.0-34.0); Mean Corpuscular HGB Conc 32.7 g/dL (31.5-36.5); Mean Corpuscular Volume 103 fL (80-100); Mean Platelet Volume 9.3 fL (9.1-12.4); NEUTROPHILS ABSOLUTE AUTO 7.83 K/mm3 (1.96-9.15); NEUTROPHILS PERCENT AUTO 94 % (41-73); Platelet Count 144 K/mm3 (150-400); RDW Coefficient Variation 13.9 % (11.7-14.2); RDW Standard Deviation 52.9 fL (35.1-46.3); Red Blood Cell Count 3.61 M/mm3 (4.30-5.90); White Blood Cell Count 8.35 K/mm3 (4.00-11.30)
[2024-07-05 06:02] LABS: Bun/Creatinine Ratio 20.6 (12.0-20.0); Calcium, Blood 8.3 mg/dL (8.5-10.1); Creatinine, Blood 0.58 mg/dL (0.60-1.20); Potassium, Blood 3.9 mmol/L (3.5-5.5)
--- NOTE | 2024-07-05 07:31 | NUR ---
AAOX4, INDEPENDENT IN ROOM. 3L O2 VIA NC, BASELINE 3-4L. ISOLATION FOR INFLUENZA A. PT HAS INCREASED ANXIETY R/T LIVING SITUATION AND SON, LISTENED AND OFFERED SUPPORT. PLAN IS FOR A SAFE DC TO FACILITY D/T UNSHELTERED. NO ACUTE EVENTS THROUGHOUT NIGHT.
[2024-07-05 07:50] VITALS: BP 131/81
[2024-07-05] MEDS ORDERED: Enoxaparin 40 MG/0.4 ML SYR SC SCH (14:00)
--- NOTE | 2024-07-05 15:16 | NUR ---
DISCHARGE SUMMARY PT DC THIS SHIFT. DC INSTRUCTION GONE OVER WITH PT WHOM STATED UNDERSTANDING. PT WAS EXCORTED TO PRIVATE VEHICLE VIA WHEELCHAIR BY VICE PRESIDENT QUALITY ASSURANCE.
[2024-07-05] MEDS ORDERED: MethylPREDNISolone Sod Succ 125 MG Vial IV SCH (21:00)
== END 2024-07-05 14:38 | disposition home or self-care (01) | DRG 193 ==
LOC: ER 12:54 → ERHOLD 12:55 → MEDS 12:55
PROVIDERS: Emergency Medicine; Family Medicine; Nurse Practitioner Acute Care; ADMIT Internal Medicine
DX: J10.1 Influenza due to other identified influenza virus with other respiratory manifestations (principal); J96.21 Acute and chronic respiratory failure with hypoxia; J44.1 Chronic obstructive pulmonary disease with (acute) exacerbation; I50.22 Chronic systolic (congestive) heart failure; I31.39 Other pericardial effusion (noninflammatory); F10.10 Alcohol abuse, uncomplicated; E03.9 Hypothyroidism, unspecified; F17.210 Nicotine dependence, cigarettes, uncomplicated; I11.0 Hypertensive heart disease with heart failure; I70.1 Atherosclerosis of renal artery; E78.5 Hyperlipidemia, unspecified; F15.10 Other stimulant abuse, uncomplicated; Z79.899 Other long term (current) drug therapy; Z79.890 Hormone replacement therapy; Z88.8 Allergy status to other drugs, medicaments and biological substances; Z91.038 Other insect allergy status; F41.9 Anxiety disorder, unspecified; D69.6 Thrombocytopenia, unspecified; D64.9 Anemia, unspecified; Z71.6 Tobacco abuse counseling; Z71.41 Alcohol abuse counseling and surveillance of alcoholic; Z79.02 Long term (current) use of antithrombotics/antiplatelets; Z91.030 Bee allergy status; M81.0 Age-related osteoporosis without current pathological fracture; Z96.643 Presence of artificial hip joint, bilateral; Z87.19 Personal history of other diseases of the digestive system; Z90.89 Acquired absence of other organs; Z90.49 Acquired absence of other specified parts of digestive tract; Z91.148 Patient's other noncompliance with medication regimen for other reason; Z99.81 Dependence on supplemental oxygen
CPT/HCPCS: 36415; 71045; 71260; 80048; 80053; 82803; 83735; 83880; 84484; 85025; 85027; 85379; 93005; 93010; 93306; 94640; 94664; 94760; 96365-59; 96366; 96375; 96375-59; 96376; 99285-25; A9270; G0378; J0456; J1650; J2060; J2919; J7050; Q9967

== ENCOUNTER 2024-08-25 16:34 | Inpatient (IN) | payer MEDICARE, OTHER ==
[~2024-08-25] VITALS: Ht 175.3 cm; Wt 87.3 kg
[2024-08-25 17:11] LABS: BASOPHILS ABSOLUTE AUTO 0.04 K/mm3 (0.00-0.23); BASOPHILS PERCENT AUTO 0 % (0-2); EOSINOPHILS PERCENT AUTO 0 % (0-6); Hemoglobin 12.9 g/dL (13.5-17.5); IMMATURE GRAN ABSOLUTE AUTO 0.08 K/mm3 (0.00-0.10); IMMATURE GRAN PERCENT AUTO 1 % (0-1); LYMPHOCYTES ABSOLUTE AUTO 0.78 K/mm3 (0.84-5.20); LYMPHOCYTES PERCENT AUTO 6 % (21-46); MONOCYTES ABSOLUTE AUTO 0.37 K/mm3 (0.16-1.47); MONOCYTES PERCENT AUTO 3 % (4-13); Mean Corpuscular HGB 33.3 pg (26.0-34.0); Mean Corpuscular HGB Conc 32.3 g/dL (31.5-36.5); Mean Corpuscular Volume 103 fL (80-100); Mean Platelet Volume 9.2 fL (9.1-12.4); NEUTROPHILS ABSOLUTE AUTO 12.59 K/mm3 (1.96-9.15); NEUTROPHILS PERCENT AUTO 91 % (41-73); Platelet Count 268 K/mm3 (150-400); RDW Coefficient Variation 14.4 % (11.7-14.2); RDW Standard Deviation 54.4 fL (35.1-46.3); Red Blood Cell Count 3.87 M/mm3 (4.30-5.90); White Blood Cell Count 13.86 K/mm3 (4.00-11.30)
[2024-08-25 17:39] LABS: Albumin, Blood 3.4 g/dL (3.4-5.0); Albumin/Globulin Ratio 1.1 (0.8-1.8); Bilirubin, Total 0.3 mg/dL (0.1-1.0); Bun/Creatinine Ratio 11.9 (12.0-20.0); Calcium, Blood 8.8 mg/dL (8.5-10.1); Creatinine, Blood 0.84 mg/dL (0.60-1.20); Globulin, Blood 3.2 g/dL (2.2-4.0); Potassium, Blood 4.2 mmol/L (3.5-5.5); Total Protein, Blood 6.6 g/dL (6.4-8.2)
[2024-08-25] MEDS ORDERED: Albuterol 2.5 MG/3 ML VIAL INH SCH (18:15)
[2024-08-25] MEDS ORDERED: MethylPREDNISolone Sod Succ 125 MG Vial IV ONE (18:15)
[2024-08-25] MEDS ORDERED: NS 1,000 ML IV SCH (19:20)
[2024-08-25] MEDS ORDERED: FLU VACC TS2024-25(6MOS UP)/PF 45 MCG/0.5 ML SYRINGE IM SCH (19:20)
[2024-08-25] MEDS ORDERED: Ondansetron HCl 2 MG / ML 2ML Vial IV PRN (19:20)
[2024-08-25] MEDS ORDERED: HydrOXYzine Pamoate 25 MG Cap PO PRN (19:25)
[2024-08-25] MEDS ORDERED: Ipratropium/Albuterol SulF 2.5-0.5MG/3 ML Amp INH SCH (19:25)
[2024-08-25] MEDS ORDERED: Albuterol 2.5 MG/3 ML VIAL INH PRN (19:25)
[2024-08-25 19:57] LABS: Base Excess Venous 6.5 mmol/L; Bicarbonate Venous 29.2 mmol/L (24.0-30.0); PCO2 Venous 49.3 mmHg (38-42); pH Blood Venous 7.41 (7.34-7.37)
[2024-08-25] MEDS ORDERED: NS 500 ML IV ONE (20:00)
[2024-08-25] MEDS ORDERED: Azithromycin 500 MG in NS 250 ML IV SCH (20:00)
[2024-08-25 20:49] LABS: CORONAVIRUS COVID-19 AG Negative (NEGATIVE); INFLUENZA A AG Negative (NEGATIVE); INFLUENZA B AG Negative (NEGATIVE)
[2024-08-25 21:15] VITALS: BP 131/92
[2024-08-26] MEDS ORDERED: MethylPREDNISolone Sod Succ 125 MG Vial IV SCH
[2024-08-26] MEDS ORDERED: Acetaminophen 325 MG TABLET PO PRN (00:35)
[2024-08-26 04:22] VITALS: BP 127/75
--- NOTE | 2024-08-26 04:30 | NUR ---
SHIFT SUMMARY; AFTER ADMIT PATIENT WAS C/O PAIN WHEN COUGHING, HOSPITALIST CONTACTED FOR TYLENOL ORDER. WAS ABLE TO GET SHORT EPISODES OF SLEEP TONIGHT. RT CALLED FOR UND AT 0445. VSS, O2/3L/NC.
[2024-08-26] MEDS ORDERED: Levothyroxine Sodium 0.15 MG Tab PO SCH (06:00)
[2024-08-26 07:14] VITALS: BP 142/76
[2024-08-26] MEDS ORDERED: Enoxaparin 40 MG/0.4 ML SYR SC SCH (09:00)
[2024-08-26] MEDS ORDERED: Clopidogrel Bisulfate 75 MG Tab PO SCH (09:00)
[2024-08-26] MEDS ORDERED: Atorvastatin 40 MG Tab PO SCH (09:00)
[2024-08-26] MEDS ORDERED: DULoxetine HCL 30 MG Cap DR PO SCH (09:00)
[2024-08-26] MEDS ORDERED: Nicotine 14 MG PATCH TOP SCH (12:26)
[2024-08-26 15:33] VITALS: BP 148/85
--- NOTE | 2024-08-26 16:20 | NUR ---
SHIFT SUMMARY MR ABBOTT C/O CHEST PAIN AND HEADACHE. PAIN HAS BEEN THERE THROUGHOUT THE DAY, BUT EASED WITH TYLENOL. CHEST PAIN INCREASES ON COUGHING. EXPECTORATING THICK MUCUS, SAMPLE TO LAB. MR ABBOTT RECENTLY QUIT SMOKING AND HAD NICOTENE PATCH ON PRIOR TO ADMISSION. HE SAID HE IS KEEN TO KEEP OFF THE CIGARETTES. TALKING IN FULL SENTENCES. SOB ON EXERTION. ON 3L NC CURRENTLY, STARTED SHIFT AT 4L NC. RESTING IN CHAIR, CALL LIGHT IN REACH.
[2024-08-26 19:06] VITALS: BP 133/87
[2024-08-26] MEDS ORDERED: CefTRIAXone Sodium 1,000 MG in NS 100 ML IV SCH (21:00)
[2024-08-26] MEDS ORDERED: Lactobacil 2-S.Thermo-Bifido 1 1 Cap PO SCH (21:00)
[2024-08-27 04:32] VITALS: BP 124/81
[2024-08-27 05:24] LABS: BASOPHILS ABSOLUTE AUTO 0.03 K/mm3 (0.00-0.23); BASOPHILS PERCENT AUTO 0 % (0-2); EOSINOPHILS PERCENT AUTO 0 % (0-6); Hematocrit 37.3 % (37.0-53.0); Hemoglobin 12.1 g/dL (13.5-17.5); IMMATURE GRAN ABSOLUTE AUTO 0.14 K/mm3 (0.00-0.10); IMMATURE GRAN PERCENT AUTO 1 % (0-1); LYMPHOCYTES ABSOLUTE AUTO 0.76 K/mm3 (0.84-5.20); LYMPHOCYTES PERCENT AUTO 5 % (21-46); MONOCYTES ABSOLUTE AUTO 0.74 K/mm3 (0.16-1.47); MONOCYTES PERCENT AUTO 5 % (4-13); Mean Corpuscular HGB 33.3 pg (26.0-34.0); Mean Corpuscular HGB Conc 32.4 g/dL (31.5-36.5); Mean Corpuscular Volume 103 fL (80-100); Mean Platelet Volume 9.8 fL (9.1-12.4); NEUTROPHILS PERCENT AUTO 90 % (41-73); Platelet Count 251 K/mm3 (150-400); RDW Coefficient Variation 14.1 % (11.7-14.2); RDW Standard Deviation 53.8 fL (35.1-46.3); Red Blood Cell Count 3.63 M/mm3 (4.30-5.90); White Blood Cell Count 15.97 K/mm3 (4.00-11.30)
[2024-08-27 06:03] LABS: Anion Gap 9 mmol/L (3-11); Blood Urea Nitrogen 12 mg/dL (8-24); Bun/Creatinine Ratio 20.3 (12.0-20.0); CO2, Blood 29 mmol/L (21-32); Calcium, Blood 8.5 mg/dL (8.5-10.1); Chloride, Blood 104 mmol/L (98-108); Creatinine, Blood 0.59 mg/dL (0.60-1.20); Glomerular Filtration Rate 110 (60-); Glucose, Blood 121 mg/dL (70-99); Phosphorus, Blood 3.1 mg/dL (2.5-4.9); Potassium, Blood 3.7 mmol/L (3.5-5.5); Sodium, Blood 138 mmol/L (136-145)
--- NOTE | 2024-08-27 06:31 | NUR ---
SHIFT SUMMARY PATIENT IS ALERT AND ORIENTED. PATIENT HAS HAD NO ACUTE EVENTS THIS SHIFT. PATIENT HAS BEEN ON 4L NC ALL SHIFT. PATIENT HAS NO COMPLAINTS OF SOB, NAUSEA, PAIN OR VOMITTING THIS SHIFT. PATIENT HAS BEEN RESTING MOST OF SHIFT. BED IN LOCKED AND LOWEST POSITION. CALL LIGHT IN PLACE. WILL MONITOR
[2024-08-27 07:32] VITALS: BP 135/83
[2024-08-27] MEDS ORDERED: Losartan Potassium 50 MG Tab PO SCH (09:00)
[2024-08-27] MEDS ORDERED: MethylPREDNISolone Sod Succ 125 MG Vial IV SCH (09:00)
[2024-08-27] MEDS ORDERED: Nicotine 14 MG PATCH TOP SCH (09:00)
[2024-08-27 15:19] VITALS: BP 158/86
--- NOTE | 2024-08-27 18:19 | NUR ---
SHIFT SUMMARY PT AOX4, COOPERATIVE, ABLE TO MAKE NEEDS KNOWN. PT HAS BEEN IND WITH AMBULATING IN ROOM. ON 3L O2 CURRENTLY. HAS PODUCTIVE COUGH. DID EXPRESS ANXIETY IN AFTERNOON, MEDICATED PER EMAR. NO OTHER ACUTE EVENTS TOOK PLACE THIS SHIFT. PT HAS SPENT MOST OF SHIFT UP IN CHAIR. BED IN LOWEST POSITION, CALL LIGHT WITHIN REACH.
[2024-08-27 23:49] VITALS: BP 151/71
[2024-08-28 03:53] VITALS: BP 137/74
[2024-08-28 05:18] LABS: BASOPHILS ABSOLUTE AUTO 0.02 K/mm3 (0.00-0.23); BASOPHILS PERCENT AUTO 0 % (0-2); EOSINOPHILS PERCENT AUTO 0 % (0-6); Hematocrit 38.5 % (37.0-53.0); Hemoglobin 12.5 g/dL (13.5-17.5); IMMATURE GRAN ABSOLUTE AUTO 0.14 K/mm3 (0.00-0.10); IMMATURE GRAN PERCENT AUTO 1 % (0-1); LYMPHOCYTES ABSOLUTE AUTO 0.63 K/mm3 (0.84-5.20); LYMPHOCYTES PERCENT AUTO 4 % (21-46); MONOCYTES ABSOLUTE AUTO 0.33 K/mm3 (0.16-1.47); MONOCYTES PERCENT AUTO 2 % (4-13); Mean Corpuscular HGB 33.2 pg (26.0-34.0); Mean Corpuscular HGB Conc 32.5 g/dL (31.5-36.5); Mean Corpuscular Volume 102 fL (80-100); Mean Platelet Volume 9.6 fL (9.1-12.4); NEUTROPHILS ABSOLUTE AUTO 13.17 K/mm3 (1.96-9.15); NEUTROPHILS PERCENT AUTO 92 % (41-73); Platelet Count 251 K/mm3 (150-400); RDW Coefficient Variation 13.9 % (11.7-14.2); RDW Standard Deviation 52.8 fL (35.1-46.3); Red Blood Cell Count 3.76 M/mm3 (4.30-5.90); White Blood Cell Count 14.29 K/mm3 (4.00-11.30)
--- NOTE | 2024-08-28 05:24 | NUR ---
SHIFT SUMMARY PATIENT IS ALERT AND ORIENTED. PATIENT HAS HAD NO ACUTE EVENTS THIS SHIFT. VITAL SIGNS REVIEWED. PATIENT HAS HAD NO COMPLAINTS OF SOB, NAUSEA, PAIN OR VOMITTING. PATIENT STILL IS ON 3L NC SATTING ABOVE 95 PERCENT. IV ABX INFUSED ORDERED. PATIENT HAS BEEN SLEEPING COMFORTABLY MOST OF SHIFT. BED IN LOCKED AND LOWEST POSITION. CALL LIGHT IN PLACE.
[2024-08-28 05:53] LABS: Anion Gap 9 mmol/L (3-11); Blood Urea Nitrogen 15 mg/dL (8-24); Bun/Creatinine Ratio 25.5 (12.0-20.0); CO2, Blood 30 mmol/L (21-32); Calcium, Blood 9.2 mg/dL (8.5-10.1); Chloride, Blood 100 mmol/L (98-108); Creatinine, Blood 0.59 mg/dL (0.60-1.20); Glomerular Filtration Rate 110 (60-); Glucose, Blood 125 mg/dL (70-99); Phosphorus, Blood 3.8 mg/dL (2.5-4.9); Potassium, Blood 4.3 mmol/L (3.5-5.5); Sodium, Blood 135 mmol/L (136-145)
[2024-08-28 08:02] VITALS: BP 136/80
[2024-08-28] MEDS ORDERED: Furosemide 20 MG Tab PO SCH (09:00)
[2024-08-28] MEDS ORDERED: AMOCLA875 PO (11:51)
[2024-08-28] MEDS ORDERED: DULO30 PO (11:52)
[2024-08-28] MEDS ORDERED: VISBIOME 112.51 EACH PO (11:52)
[2024-08-28] MEDS ORDERED: CLOP75 PO (11:52)
[2024-08-28] MEDS ORDERED: PRED20 PO (11:54)
--- NOTE | 2024-08-28 14:38 | NUR ---
DISCHARGE SUMMARY PT A&OX4 AND ANSWERS QUESTIONS APPROPRIATELY. PT SEEN THIS AM BY PHYSICIAN AND CLEARED MEDICALLY FOR DISCHARGE. PT RECEIVED SCHEDULED AND PRN MEDICATIONS WITH NO ADVERSE EFFECTS. PT RECEIVED DISCHARGE EDUCATION. PT VSS, PT VOICES CHEST PAIN WITH COUGHING. NO ACUTE EVENTS AT THIS TIME. PT DISCHARGED HOME VIA W/C TO PERSONAL VEHICLE. HOME O2 UTELIZED, ALL ITEMS OOR.
== END 2024-08-28 13:42 | disposition home or self-care (01) | DRG 190 ==
LOC: ER 16:34 → ERHOLD 16:35 → MEDS 16:35
PROVIDERS: Emergency Medicine; Family Medicine; Nurse Practitioner Acute Care; Physician Assistant; ADMIT Internal Medicine
DX: J44.1 Chronic obstructive pulmonary disease with (acute) exacerbation (principal); J18.9 Pneumonia, unspecified organism; I50.20 Unspecified systolic (congestive) heart failure; J96.11 Chronic respiratory failure with hypoxia; J44.0 Chronic obstructive pulmonary disease with (acute) lower respiratory infection; E78.5 Hyperlipidemia, unspecified; F17.210 Nicotine dependence, cigarettes, uncomplicated; E03.9 Hypothyroidism, unspecified; F15.90 Other stimulant use, unspecified, uncomplicated; I11.0 Hypertensive heart disease with heart failure; F41.9 Anxiety disorder, unspecified; F32.A Depression, unspecified; Z88.8 Allergy status to other drugs, medicaments and biological substances; Z91.030 Bee allergy status; Z91.038 Other insect allergy status; Z99.81 Dependence on supplemental oxygen; F10.20 Alcohol dependence, uncomplicated; Z79.899 Other long term (current) drug therapy; Z79.02 Long term (current) use of antithrombotics/antiplatelets; Z79.890 Hormone replacement therapy
CPT/HCPCS: 36415; 71046; 80053; 80069; 82803; 84484; 85025; 87070; 87205; 87428-QW; 93005; 93010; 94640; 94644; 94664; 94760; 96365; 96372; 96375; 96376; 99285-25; A9270; G0378; J0456; J0696; J1650; J2919; J7030; J7040; J7050; Q0177

== ENCOUNTER 2024-11-18 10:18 | Emergency (ER) | payer MEDICARE, OTHER ==
[~2024-11-18] VITALS: Ht 177.8 cm; Wt 99.8 kg
[~2024-11-18 10:18] MED LIST changes: +AMOCLA875 PO
[2024-11-18] MEDS ORDERED: Cyclobenzaprine HCl 10 MG Tab PO ONE (11:15)
[2024-11-18] MEDS ORDERED: Lidocaine 4% 1 Patch TOP ONE (11:15)
[2024-11-18] MEDS ORDERED: FentaNYL Citrate 50 MCG/ML 2 ML Injection IV ONE (12:20)
[2024-11-18] MEDS ORDERED: Ketorolac Tromethamine 15mg Vial IM ONE (12:35)
[2024-11-18 12:45] VITALS: BP 132/81
== END 2024-11-18 12:52 | disposition home or self-care (01) ==
LOC: ER 10:18
DX: R51.9 Headache, unspecified (principal); M50.322 Other cervical disc degeneration at C5-C6 level; M50.323 Other cervical disc degeneration at C6-C7 level; Y09 Assault by unspecified means; F17.210 Nicotine dependence, cigarettes, uncomplicated; I10 Essential (primary) hypertension; J44.9 Chronic obstructive pulmonary disease, unspecified; Z79.899 Other long term (current) drug therapy; Z79.891 Long term (current) use of opiate analgesic; Z79.890 Hormone replacement therapy; Z79.51 Long term (current) use of inhaled steroids; Z79.1 Long term (current) use of non-steroidal anti-inflammatories (NSAID); Z79.84 Long term (current) use of oral hypoglycemic drugs; Z79.82 Long term (current) use of aspirin; Z79.52 Long term (current) use of systemic steroids; Z79.2 Long term (current) use of antibiotics; Z91.038 Other insect allergy status; Z88.8 Allergy status to other drugs, medicaments and biological substances
CPT/HCPCS: 70450; 72125; 96372; 99283-25; A9270; J1885; L0160

== ENCOUNTER 2025-05-23 21:57 | Inpatient (IN) | payer MEDICARE, OTHER ==
[~2025-05-23] VITALS: Ht 175.3 cm; Wt 91.3 kg
[~2025-05-23 21:57] MED LIST changes: +ANTIFUNGAL30 GM; +BETA.05TCA TOP; -LOSARTAN POTAS100 M1 PO; +TIZA4 PO; +Triamcinolone A15 G3
[2025-05-23 22:51] LABS: BASOPHILS ABSOLUTE AUTO 0.09 K/mm3 (0.00-0.23); BASOPHILS PERCENT AUTO 1 % (0-2); EOSINOPHILS ABSOLUTE AUTO 0.23 K/mm3 (0.00-0.68); EOSINOPHILS PERCENT AUTO 2 % (0-6); Hematocrit 37.8 % (37.0-53.0); Hemoglobin 12.4 g/dL (13.5-17.5); IMMATURE GRAN ABSOLUTE AUTO 0.10 K/mm3 (0.00-0.10); IMMATURE GRAN PERCENT AUTO 1 % (0-1); LYMPHOCYTES ABSOLUTE AUTO 1.68 K/mm3 (0.84-5.20); LYMPHOCYTES PERCENT AUTO 14 % (21-46); MONOCYTES ABSOLUTE AUTO 0.81 K/mm3 (0.16-1.47); MONOCYTES PERCENT AUTO 7 % (4-13); Mean Corpuscular HGB Conc 32.8 g/dL (31.5-36.5); Mean Corpuscular Volume 97 fL (80-100); NEUTROPHILS ABSOLUTE AUTO 9.19 K/mm3 (1.96-9.15); NEUTROPHILS PERCENT AUTO 76 % (41-73); NRBC ABSOLUTE 0.00 K/mm3 (0.00-0.02); NRBC Auto 0.0 /100 WBC (0.0-0.2); Platelet Count 256 K/mm3 (150-400); RDW Coefficient Variation 15.3 % (11.7-14.2); RDW Standard Deviation 54.4 fL (35.1-46.3)
[2025-05-23 23:10] LABS: Alanine Aminotransfer (ALT/SGP 33.0 U/L (12-78); Albumin, Blood 3.7 g/dL (3.4-5.0); Albumin/Globulin Ratio 1.2 (0.8-1.8); Anion Gap 12.0 mmol/L (3-11); Aspartate Aminotrans (AST/SGOT 26.0 U/L (12-37); Bilirubin, Total 0.3 mg/dL (0.1-1.0); Blood Urea Nitrogen 14.0 mg/dL (8-24); CO2, Blood 27.0 mmol/L (21-32); Calcium, Blood 8.5 mg/dL (8.5-10.1); Chloride, Blood 95.0 mmol/L (98-108); Creatinine, Blood 0.69 mg/dL (0.60-1.20); Globulin, Blood 3.1 g/dL (2.2-4.0); Glucose, Blood 103.0 mg/dL (70-99); Potassium, Blood 4.1 mmol/L (3.5-5.5); Sodium, Blood 130.0 mmol/L (136-145); Total Protein, Blood 6.8 g/dL (6.4-8.2)
[2025-05-24] MEDS ORDERED: Ipratropium/Albuterol SulF 2.5-0.5MG/3 ML Amp INH ONE (00:15)
[2025-05-24 00:28] LABS: pH Blood Venous 7.33 (7.34-7.37)
[2025-05-24] MEDS ORDERED: NS 1,000 ML IV SCH ×2 (01:05→05:00)
[2025-05-24 01:22] LABS: Magnesium, Blood 2.1 mg/dL (1.6-2.4); Phosphorus, Blood 3.5 mg/dL (2.5-4.9)
[2025-05-24] MEDS ORDERED: Ipratropium/Albuterol SulF 2.5-0.5MG/3 ML Amp INH SCH (03:35)
[2025-05-24] MEDS ORDERED: FLU VACC TS2025-26(6MOS UP)/PF 45 MCG/0.5 ML SYRINGE IM SCH (03:40)
[2025-05-24] MEDS ORDERED: Albuterol 2.5 MG/3 ML VIAL INH PRN (03:40)
[2025-05-24] MEDS ORDERED: CefTRIAXone Sodium 1,000 MG in NS 100 ML IV SCH (03:59)
[2025-05-24] MEDS ORDERED: Ondansetron HCl 2 MG / ML 2ML Vial IV ONE (04:00)
[2025-05-24] MEDS ORDERED: Ondansetron 4 MG SoluTab MM PRN (04:15)
[2025-05-24 05:58] LABS: Influenza A, PCR NEGATIVE (NEGATIVE); Influenza B, PCR NEGATIVE (NEGATIVE); Resp Syncytial Virus, PCR NEGATIVE (NEGATIVE); SARS-Cov-2 (COVID-19) PCR, MMC NEGATIVE (NEGATIVE)
[2025-05-24 08:03] VITALS: BP 139/74
[2025-05-24 08:11] LABS: BASOPHILS ABSOLUTE AUTO 0.02 K/mm3 (0.00-0.23); BASOPHILS PERCENT AUTO 0 % (0-2); EOSINOPHILS ABSOLUTE AUTO 0.01 K/mm3 (0.00-0.68); EOSINOPHILS PERCENT AUTO 0 % (0-6); Hematocrit 39.1 % (37.0-53.0); Hemoglobin 12.5 g/dL (13.5-17.5); IMMATURE GRAN ABSOLUTE AUTO 0.07 K/mm3 (0.00-0.10); IMMATURE GRAN PERCENT AUTO 1 % (0-1); LYMPHOCYTES ABSOLUTE AUTO 0.59 K/mm3 (0.84-5.20); LYMPHOCYTES PERCENT AUTO 6 % (21-46); MONOCYTES ABSOLUTE AUTO 0.07 K/mm3 (0.16-1.47); MONOCYTES PERCENT AUTO 1 % (4-13); Mean Corpuscular HGB Conc 32.0 g/dL (31.5-36.5); Mean Corpuscular Volume 99 fL (80-100); NEUTROPHILS ABSOLUTE AUTO 9.28 K/mm3 (1.96-9.15); NEUTROPHILS PERCENT AUTO 92 % (41-73); NRBC ABSOLUTE 0.00 K/mm3 (0.00-0.02); NRBC Auto 0.0 /100 WBC (0.0-0.2); Platelet Count 243 K/mm3 (150-400); RDW Coefficient Variation 15.2 % (11.7-14.2); RDW Standard Deviation 54.7 fL (35.1-46.3)
[2025-05-24 08:29] LABS: Alanine Aminotransfer (ALT/SGP 35.0 U/L (12-78); Albumin, Blood 3.6 g/dL (3.4-5.0); Albumin/Globulin Ratio 1.2 (0.8-1.8); Anion Gap 9.0 mmol/L (3-11); Aspartate Aminotrans (AST/SGOT 23.0 U/L (12-37); Bilirubin, Total 0.3 mg/dL (0.1-1.0); Blood Urea Nitrogen 15.0 mg/dL (8-24); CO2, Blood 31.0 mmol/L (21-32); Calcium, Blood 8.0 mg/dL (8.5-10.1); Chloride, Blood 97.0 mmol/L (98-108); Creatinine, Blood 0.65 mg/dL (0.60-1.20); Globulin, Blood 3.1 g/dL (2.2-4.0); Glucose, Blood 131.0 mg/dL (70-99); Potassium, Blood 4.5 mmol/L (3.5-5.5); Sodium, Blood 132.0 mmol/L (136-145); Total Protein, Blood 6.7 g/dL (6.4-8.2)
[2025-05-24] MEDS ORDERED: Enoxaparin 40 MG/0.4 ML SYR SC SCH (09:00)
[2025-05-24] MEDS ORDERED: Lactobacil 2-S.Thermo-Bifido 1 1 Cap PO SCH (09:00)
--- NOTE | 2025-05-24 09:30 | NUR ---
PATIENT ADMIT TO PCU AT 0754 THIS AM. USED SLIDE SHEET TO TRANSFER. ALERT AND ORIENTED X4. FOLLOWING COMMANDS. LIONEL JOSEPH AT BEDSIDE. TELE SHOWING SINUS RHYTHM WITH HR 70-80'S. DENIES CHEST PAIN/PRESSURE/PALPITATIONS. IV FLUIDS INFUSING PER EMAR. PPP. LEFT LOWER EXTREMITITY WITH 2+ EDEMA AND REDNESS. PATIENT STATES HE RECENTLY HAD LOWER EXTREMITY ANGIOGRAM WITH DR. OLVERA TO [facility] AND HAS RLE ANGIOGRAM PLANNED FOR 06/02. ON BIPAP, SETTINGS 12/6 AND 45% FIO2 UPON ARRIVAL TO PCU. RESPIRATORY RATE 20-24. LUNG SOUNDS DIMINISHED THROUGHOUT. PATIENT STATES HE WEARS 2-3L AT BASELINE. RESPIRATORY IN FOR BREATHING TREATMENTS. BOWEL TONES PRESENT. DENIES ABDOMINAL PAIN/NAUSEA. USING URINAL TO VOID. PATIENT WILL RESUME DIET ONCE ABLE TO TOLERATE OFF BIPAP. SKIN WITH SCATTERED BRUISING TO UPPER EXTREMITIES. LEFT LOWER EXTREMITY RED AND SWOLLEN. PATIENT COMPLAINS OF INTERMIT PAIN TO LLE. PO TYLENOL GIVEN PER EMAR. LLE ULTRASOUND ORDERS IN PLACE. ORIENTED TO ROOM/UNIT. CALL LIGHT IN REACH.
[2025-05-24 11:04] VITALS: BP 125/70
[2025-05-24] MEDS ORDERED: DULoxetine HCL 30 MG Cap DR PO SCH (11:30)
[2025-05-24 12:08] VITALS: BP 135/75
--- NOTE | 2025-05-24 12:41 | NUR ---
DR. GOODWIN TO BEDSIDE. THIS RN PRESENT FOR MD. HOME MEDICATIONS RESTARTED WELL TRAMDOL AND NICOTINE PATCH. PATIENT TITRATED TO 5-6L HIGH FLOW NASAL CANNULA AND SATING 89-92%. ABLE TO EAT LUNCH AND DENIES NEEDS AT THIS TIME.
[2025-05-24 15:17] VITALS: BP 126/72
--- NOTE | 2025-05-24 18:08 | NUR ---
SHIFT SUMMARY: NO ACUTE CHANGES. PATIENT REMAINS ON 5-6 NASAL CANNULA. NEEDING BIPAP TO RECOVER FROM USING BSC. TELE REMAINS SR. INTERMIT LEFT LEG PAIN, MEDICATED PER EMAR WITH GOOD RELIEF. NICOTINE PATCH TO LEFT SHOUDLER. TOLERATING PO DIET. USING URINAL TO VOID. IV SALINE LOCKED. VITAL SIGNS STABLE. EATING DINNER AT THIS TIME. CALL LIGHT IN REACH. DENIES NEEDS.
[2025-05-24 19:42] VITALS: BP 128/76
[2025-05-24 23:23] VITALS: BP 135/77
[2025-05-25 05:03] VITALS: BP 134/91
[2025-05-25] MEDS ORDERED: Levothyroxine Sodium 0.15 MG Tab PO SCH (06:00)
[2025-05-25] MEDS ORDERED: NS 250 ML IV PRN (06:30)
[2025-05-25 07:36] VITALS: BP 141/86
--- NOTE | 2025-05-25 07:36 | NUR ---
ASSUMPTION NOTE: THIS RN TO ASSUME CARE OF PAULETTE. PATIENT IS SITTING UP IN BED & AWAITING BREAKFAST. PATIENT IS ON 6 LITERS VIA NASAL CANNULA AND SATTING >92%. PATIENT VITALS STABLE. [employer]AMART HAS CALL LIGHT WITHIN REACH, BED IN LOWEST LOCKED POSITION & STATING NOTHIGN ELSE IS NEEDED AT THIS TIME.
[2025-05-25] MEDS ORDERED: Guaifenesin/Dextromethorphan Syrup 5 ML UDC PO PRN ×2 (10:20→11:15)
--- NOTE | 2025-05-25 10:22 | NUR ---
MD CONTACTED: THIS RN CONTACTED MD CHISHOLMARDING PATIENT'S COUGH TO ASK FOR MEDICATION FOR IT. ORDER WAS PLACED, AWAITING PHARMACY VERIFICATION.
[2025-05-25 11:32] VITALS: BP 128/77
--- NOTE | 2025-05-25 13:54 | NUR ---
TRANSFER NOTE: PATIENT IS ALERT AND ORIENTED X4, SATTING >92% ON 2 LITERS VIA NASAL CANNULA DOES DESAT WITH EXERTION AND IS BUMPED UP WHEN NEEDING BUT RECOVERS QUICKLY. PATIENT IS ON TELE SHOWING SINUS RYTHM IN 70'S OCCASIONAL PVC'S. PATIENT TOOK ALL PERSONAL BELONGINGS & AWARE OF THE TRANSFER. REPORT WAS GIVEN TO [facility] NURSE [place] PRIOR TO ARRIVAL.
[2025-05-25 13:59] VITALS: BP 148/80
[2025-05-25 16:12] VITALS: BP 140/80
[2025-05-25 20:37] VITALS: BP 146/73
[2025-05-26 00:41] VITALS: BP 148/89
[2025-05-26 04:32] VITALS: BP 146/87
[2025-05-26 04:49] LABS: BASOPHILS ABSOLUTE AUTO 0.01 K/mm3 (0.00-0.23); BASOPHILS PERCENT AUTO 0 % (0-2); EOSINOPHILS ABSOLUTE AUTO 0.00 K/mm3 (0.00-0.68); EOSINOPHILS PERCENT AUTO 0 % (0-6); Hematocrit 37.6 % (37.0-53.0); Hemoglobin 12.2 g/dL (13.5-17.5); IMMATURE GRAN ABSOLUTE AUTO 0.08 K/mm3 (0.00-0.10); IMMATURE GRAN PERCENT AUTO 1 % (0-1); LYMPHOCYTES ABSOLUTE AUTO 0.73 K/mm3 (0.84-5.20); LYMPHOCYTES PERCENT AUTO 5 % (21-46); MONOCYTES ABSOLUTE AUTO 0.38 K/mm3 (0.16-1.47); MONOCYTES PERCENT AUTO 3 % (4-13); Mean Corpuscular HGB Conc 32.4 g/dL (31.5-36.5); Mean Corpuscular Volume 98 fL (80-100); NEUTROPHILS ABSOLUTE AUTO 13.11 K/mm3 (1.96-9.15); NEUTROPHILS PERCENT AUTO 92 % (41-73); NRBC ABSOLUTE 0.00 K/mm3 (0.00-0.02); NRBC Auto 0.0 /100 WBC (0.0-0.2); Platelet Count 258 K/mm3 (150-400); RDW Coefficient Variation 15.4 % (11.7-14.2); RDW Standard Deviation 55.5 fL (35.1-46.3)
[2025-05-26 05:30] LABS: Alanine Aminotransfer (ALT/SGP 29.0 U/L (12-78); Albumin, Blood 3.4 g/dL (3.4-5.0); Albumin/Globulin Ratio 1.3 (0.8-1.8); Anion Gap 7.0 mmol/L (3-11); Aspartate Aminotrans (AST/SGOT 19.0 U/L (12-37); Bilirubin, Total 0.3 mg/dL (0.1-1.0); Blood Urea Nitrogen 19.0 mg/dL (8-24); CO2, Blood 31.0 mmol/L (21-32); Calcium, Blood 8.8 mg/dL (8.5-10.1); Chloride, Blood 98.0 mmol/L (98-108); Creatinine, Blood 0.64 mg/dL (0.60-1.20); Globulin, Blood 2.7 g/dL (2.2-4.0); Glucose, Blood 144.0 mg/dL (70-99); Magnesium, Blood 2.4 mg/dL (1.6-2.4); Potassium, Blood 4.2 mmol/L (3.5-5.5); Sodium, Blood 132.0 mmol/L (136-145); Total Protein, Blood 6.1 g/dL (6.4-8.2)
--- NOTE | 2025-05-26 06:34 | NUR ---
SHIFT SUMMARY PT MAINTAINED ON 3.5L NC WITH SATS WNL. PT ON CONTINUOUS PULSE OX MONITOR. PT SOB WITH ANY ACTIVITY AND COUGHING UP SMALL AMOUNTS OF THICK WHITE SPUTUM. PT INDEPENDENT IN ROOM, BUT NEEDS REMINDERS TO PACE ACTIVITIES AND SLOW DOWN. ROBITUSSIN GIVEN PER EMAR. IV ANTIBIOTICS AND IV STEROIDS CONTINUE PER ORDER. PT SLEPT ONLY SHORT INTERVALS DURING THE NIGHT.
--- NOTE | 2025-05-26 08:05 | NUR ---
AT APPROX 0745 PATIENT CALL LIGHT ON AND YELLING FROM ROOM " I CAN'T BREATHE." PATIENT STANDING IN TRI POD POSITION ON R SIDE OF BED. PATIENT DIAPHORETIC AND DIFFICULTY BREATHING. OXYGEN SATURATION LEVEL ABOVE 90%, NO EVENTS ON TELE. NON REBREATHER MASK APPLIED AND COULD WASH CLOTHES AND WALKED PATIENT THROUGH BREATHING EXERCISES. CALLED RT FOR ASSISTANCE. RT ARRIVED AND PROVIDED TREATMENT. PATIENT BACK IN BED, RECEIVING TREATMENT, MORE STABLE, BREATING BETTER. CALL MADE TO DR. GOODWIN TO NOTIFY OF EVENT AND THAT PATIENT REPORTS ANXIETY AND MEDICATION REQUESTED; RECEIVED AN TELE ORDER FOR ATIVAN 0.5 MG PO ONCE. PATIENT REPORTS HAS NEVER TAKEN BENZO BEFORE.
[2025-05-26 08:11] VITALS: BP 146/96
[2025-05-26 11:52] VITALS: BP 137/88
[2025-05-26 16:20] VITALS: BP 137/87
--- NOTE | 2025-05-26 16:45 | NUR ---
SHIFT SUMMARY: PATIENT IS A&OX4/INDEPENDENT, HE HAS BEEN DOING BETTER SINCE RESPIRATORY EVENT THIS MORNING. NO NEW EVENTS SINCE. HE IS PLEASANT AND COOPERATIVE WITH CARE AND CALLS APPROPRIATELY. HE IS IN BED, ALERT, CALL LIGHT WITHIN REACH, NO SIGNS OR SYMPTOMS OF DISTRESS, PLAN OF CARE ONGOING.
[2025-05-26 19:57] VITALS: BP 156/95
[2025-05-27 00:01] VITALS: BP 168/97
[2025-05-27 04:19] VITALS: BP 168/97
--- NOTE | 2025-05-27 06:14 | NUR ---
SHIFT SUMMARY PT REMAINS ON O2 3L NC DURING THE NIGHT WITH CONTINUOUS PULSE OX IN PLACE. O2 SATS WNL. PT CONTINUES TO HAVE SOB WITH ACTIVITY. IV ANTIBIOTICS CONTINUE PER ORDER. MEDICATED WITH PRN ATARAX PER EMAR. PT SLEPT LONG INTERVALS DURING THE NIGHT.
[2025-05-27 08:00] VITALS: BP 119/71
--- NOTE | 2025-05-27 11:16 | NUR ---
TELE CALLED REPORTING A RUN OF SVT; NON SUSTAINING. PATIENT ASSESSED; ALERT/NO S/S OF DISTRESS.
[2025-05-27 11:52] VITALS: BP 148/96
[2025-05-27] MEDS ORDERED: Vitamin D1000 UNI1 PO (13:06)
[2025-05-27] MEDS ORDERED: CENTRUM SILVER1 EAC2 PO (13:06)
[2025-05-27] MEDS ORDERED: POTA8 PO (13:06)
[2025-05-27 16:54] VITALS: BP 140/88
--- NOTE | 2025-05-27 17:39 | NUR ---
SHIFT SUMMARY: NO EVENTS OR CHANGES WITH THE PATIENT THROUGHOUT THE SHIFT. HE IS BREATHING BETTER AND WORKING ON HIS STAMINA, WAS ABLE TO GO ON A SHORT WALK TODAY AND MAINTAIN OXYGEN SATURATION ABOVE 90%. PATIENT IN BED, ALERT, CALL LIGHT WITHIN REACH, NO SIGNS OR SYMPTOMS OF DISTRESS, PLAN OF CARE ONGOING. POSSIBLE DISCHARGE 05/28.
[2025-05-27 19:27] VITALS: BP 148/84
[2025-05-28 05:27] VITALS: BP 137/92
--- NOTE | 2025-05-28 06:42 | NUR ---
SHIFT SUMMARY: Pt is admitted for COPD exacerbation and is a full code. Is alert and able to make needs known. ADLs have been IND. pain has been managed with PRN APAP. sherrell was noted sinus in the 80s with a bundle branch and PVCs. no events noted with kasiy.
[2025-05-28 07:27] VITALS: BP 154/92
[2025-05-28 10:29] LABS: BASOPHILS ABSOLUTE AUTO 0.02 K/mm3 (0.00-0.23); BASOPHILS PERCENT AUTO 0 % (0-2); EOSINOPHILS ABSOLUTE AUTO 0.11 K/mm3 (0.00-0.68); EOSINOPHILS PERCENT AUTO 1 % (0-6); Hematocrit 40.7 % (37.0-53.0); Hemoglobin 13.2 g/dL (13.5-17.5); IMMATURE GRAN ABSOLUTE AUTO 0.12 K/mm3 (0.00-0.10); IMMATURE GRAN PERCENT AUTO 1 % (0-1); LYMPHOCYTES ABSOLUTE AUTO 1.08 K/mm3 (0.84-5.20); LYMPHOCYTES PERCENT AUTO 7 % (21-46); MONOCYTES ABSOLUTE AUTO 0.77 K/mm3 (0.16-1.47); MONOCYTES PERCENT AUTO 5 % (4-13); Mean Corpuscular HGB Conc 32.4 g/dL (31.5-36.5); Mean Corpuscular Volume 98 fL (80-100); NEUTROPHILS ABSOLUTE AUTO 12.81 K/mm3 (1.96-9.15); NEUTROPHILS PERCENT AUTO 86 % (41-73); NRBC ABSOLUTE 0.00 K/mm3 (0.00-0.02); NRBC Auto 0.0 /100 WBC (0.0-0.2); Platelet Count 301 K/mm3 (150-400); RDW Coefficient Variation 15.7 % (11.7-14.2); RDW Standard Deviation 55.3 fL (35.1-46.3)
[2025-05-28 10:46] LABS: Anion Gap 7.0 mmol/L (3-11); Blood Urea Nitrogen 19.0 mg/dL (8-24); CO2, Blood 31.0 mmol/L (21-32); Calcium, Blood 8.5 mg/dL (8.5-10.1); Chloride, Blood 99.0 mmol/L (98-108); Creatinine, Blood 0.68 mg/dL (0.60-1.20); Glucose, Blood 106.0 mg/dL (70-99); Potassium, Blood 4.1 mmol/L (3.5-5.5); Sodium, Blood 133.0 mmol/L (136-145)
[2025-05-28] MEDS ORDERED: Q-Tussin100 MG/5 M PO (11:31)
[2025-05-28] MEDS ORDERED: Tessalon200 MG PO (11:31)
[2025-05-28] MEDS ORDERED: Deltasone 10 mg10 MG PO (11:35)
[2025-05-28] MEDS ORDERED: CEFP200 PO (11:36)
--- NOTE | 2025-05-28 12:49 | NUR ---
DISCHARGE NOTE: IV AND TELE REMOVED. PATIENT GOT DRESSED AND COLLECTED BELONGINGS. PATIENT WHEELED DOWN BY STAFF WITH OXYGEN. NO SIGNS OR SYMPTOMS OF DISTRESS DURING DISCHARGE.
== END 2025-05-28 12:43 | disposition home or self-care (01) | DRG 189 ==
LOC: ER 21:57 → PCU 21:58 → ERHOLD 21:58 → PCU 05-24 07:54 → MEDS 05-25 13:55 → ENPENDDIS 05-28 10:20 → MEDS 05-28 12:43
PROVIDERS: Emergency Medicine; Internal Medicine; Physician Assistant; Student in an Organized Health Care Education/Training Program; ADMIT Student in an Organized Health Care Education/Training Program
PROC: 5A09357 Assistance with Respiratory Ventilation, Less than 24 Consecutive Hours, Continuous Positive Airway Pressure (ICD-10-PCS; principal; 2025-05-24)
PROC: 3E03329 Introduction of Other Anti-infective into Peripheral Vein, Percutaneous Approach (ICD-10-PCS; 2025-05-24)
PROC: 5A0935A Assistance with Respiratory Ventilation, Less than 24 Consecutive Hours, High Flow/Velocity Cannula (ICD-10-PCS; 2025-05-25)
DX: J96.21 Acute and chronic respiratory failure with hypoxia (principal); I50.22 Chronic systolic (congestive) heart failure; J44.1 Chronic obstructive pulmonary disease with (acute) exacerbation; E87.1 Hypo-osmolality and hyponatremia; J96.22 Acute and chronic respiratory failure with hypercapnia; I11.0 Hypertensive heart disease with heart failure; E03.9 Hypothyroidism, unspecified; M81.0 Age-related osteoporosis without current pathological fracture; I45.10 Unspecified right bundle-branch block; E86.0 Dehydration; I73.9 Peripheral vascular disease, unspecified; F41.9 Anxiety disorder, unspecified; F17.210 Nicotine dependence, cigarettes, uncomplicated; Z99.81 Dependence on supplemental oxygen; Z79.02 Long term (current) use of antithrombotics/antiplatelets; Z79.51 Long term (current) use of inhaled steroids; Z79.899 Other long term (current) drug therapy; Z79.890 Hormone replacement therapy; Z88.5 Allergy status to narcotic agent; Z88.8 Allergy status to other drugs, medicaments and biological substances; Z91.038 Other insect allergy status; Z96.643 Presence of artificial hip joint, bilateral; Z90.89 Acquired absence of other organs; Z90.49 Acquired absence of other specified parts of digestive tract; Z98.890 Other specified postprocedural states
CPT/HCPCS: 36415; 71046; 80048; 80053; 82803; 82947; 83735; 83880; 84100; 84484; 85025; 87637; 93005; 93010; 93971; 94640; 94660; 94664; 94762; 96361; 96365; 96366; 96368; 96372; 96375; 96376; 97162; 97165; 97530; 99285-25; A9270; G0378; J0456; J0696; J1650; J2405; J2919; J7030; J7050; J7512

== ENCOUNTER 2025-06-21 15:53 | Inpatient (IN) | payer MEDICARE, OTHER ==
[~2025-06-21] VITALS: Ht 177.8 cm; Wt 96.0 kg
[~2025-06-21 15:53] MED LIST changes: +BETA.05TCA; +CEFP200 PO; +CENTRUM SILVER1 EAC2 PO; +Deltasone 10 mg10 MG PO; +POTA8 PO; +Q-Tussin100 MG/5 M PO; +TERBINAFINE HCL; +Tessalon200 MG PO; +Triamcinolone A15 G3 TOP; +Vitamin D1000 UNI1 PO; +sodium chloride
[2025-06-21 16:21] LABS: pH Blood Venous 7.40 (7.34-7.37)
[2025-06-21 16:23] LABS: BASOPHILS ABSOLUTE AUTO 0.05 K/mm3 (0.00-0.23); BASOPHILS PERCENT AUTO 1 % (0-2); EOSINOPHILS ABSOLUTE AUTO 0.15 K/mm3 (0.00-0.68); EOSINOPHILS PERCENT AUTO 2 % (0-6); Hematocrit 39.5 % (37.0-53.0); Hemoglobin 12.6 g/dL (13.5-17.5); IMMATURE GRAN ABSOLUTE AUTO 0.05 K/mm3 (0.00-0.10); IMMATURE GRAN PERCENT AUTO 1 % (0-1); LYMPHOCYTES ABSOLUTE AUTO 0.86 K/mm3 (0.84-5.20); LYMPHOCYTES PERCENT AUTO 9 % (21-46); MONOCYTES ABSOLUTE AUTO 0.74 K/mm3 (0.16-1.47); MONOCYTES PERCENT AUTO 7 % (4-13); Mean Corpuscular HGB Conc 31.9 g/dL (31.5-36.5); Mean Corpuscular Volume 99 fL (80-100); NEUTROPHILS ABSOLUTE AUTO 8.23 K/mm3 (1.96-9.15); NEUTROPHILS PERCENT AUTO 82 % (41-73); NRBC ABSOLUTE 0.00 K/mm3 (0.00-0.02); NRBC Auto 0.0 /100 WBC (0.0-0.2); Platelet Count 257 K/mm3 (150-400); RDW Coefficient Variation 15.0 % (11.7-14.2); RDW Standard Deviation 54.4 fL (35.1-46.3)
[2025-06-21 16:52] LABS: Alanine Aminotransfer (ALT/SGP 40.0 U/L (12-78); Albumin, Blood 3.9 g/dL (3.4-5.0); Albumin/Globulin Ratio 1.3 (0.8-1.8); Anion Gap 6.0 mmol/L (3-11); Aspartate Aminotrans (AST/SGOT 23.0 U/L (12-37); Bilirubin, Total 0.4 mg/dL (0.1-1.0); Blood Urea Nitrogen 9.0 mg/dL (8-24); CO2, Blood 33.0 mmol/L (21-32); Calcium, Blood 8.6 mg/dL (8.5-10.1); Chloride, Blood 99.0 mmol/L (98-108); Creatinine, Blood 0.69 mg/dL (0.60-1.20); Globulin, Blood 3.0 g/dL (2.2-4.0); Glucose, Blood 90.0 mg/dL (70-99); Potassium, Blood 4.1 mmol/L (3.5-5.5); Sodium, Blood 134.0 mmol/L (136-145); Total Protein, Blood 6.9 g/dL (6.4-8.2)
[2025-06-21 17:11] LABS: Influenza A, PCR NEGATIVE (NEGATIVE); Influenza B, PCR NEGATIVE (NEGATIVE); Resp Syncytial Virus, PCR NEGATIVE (NEGATIVE); SARS-Cov-2 (COVID-19) PCR, MMC NEGATIVE (NEGATIVE)
[2025-06-21] MEDS ORDERED: ATOR80 PO (17:18)
[2025-06-21] MEDS ORDERED: Nicoderm Cq1 EAC1 TOP (17:31)
[2025-06-21] MEDS ORDERED: Albuterol 2.5 MG/3 ML VIAL INH SCH (17:45)
[2025-06-21] MEDS ORDERED: Dexamethasone Sod Phos 10 MG/ML 1ML VIAL IV ONE (18:05)
[2025-06-21] MEDS ORDERED: Ketorolac Tromethamine 15mg Vial IV ONE (18:25)
[2025-06-21] MEDS ORDERED: Albuterol 2.5 MG/3 ML VIAL INH PRN (20:55)
[2025-06-21] MEDS ORDERED: Ondansetron HCl 2 MG / ML 2ML Vial IV PRN (21:00)
[2025-06-21] MEDS ORDERED: Lactobacil 2-S.Thermo-Bifido 1 1 Cap PO SCH (21:00)
[2025-06-21] MEDS ORDERED: Ipratropium/Albuterol SulF 2.5-0.5MG/3 ML Amp INH SCH (21:05)
[2025-06-21] MEDS ORDERED: FLU VACC TS2025-26(6MOS UP)/PF 45 MCG/0.5 ML SYRINGE IM SCH (21:05)
[2025-06-21] MEDS ORDERED: CeFAZolin Sodium 2,000 MG in NS 100 ML IV SCH (21:18)
[2025-06-21 23:42] VITALS: BP 126/80
[2025-06-22 03:46] VITALS: BP 141/82
[2025-06-22 04:35] LABS: Hematocrit 38.1 % (37.0-53.0); Hemoglobin 12.2 g/dL (13.5-17.5); Mean Corpuscular HGB Conc 32.0 g/dL (31.5-36.5); Mean Corpuscular Volume 97 fL (80-100); NRBC ABSOLUTE 0.00 K/mm3 (0.00-0.02); NRBC Auto 0.0 /100 WBC (0.0-0.2); Platelet Count 239 K/mm3 (150-400); RDW Coefficient Variation 15.0 % (11.7-14.2); RDW Standard Deviation 54.2 fL (35.1-46.3)
[2025-06-22 05:16] LABS: U Amphetamine Screen Not Detected; U Barbiturate Screen Not Detected; U Benzodiazapine Screen Not Detected; U Buprenorphine Screen Not Detected; U Cannabinoids Screen DETECTED; U Cocaine Screen Not Detected; U Methadone Screen Not Detected; U Methamphetamine Screen Not Detected; U Opiates Screen Not Detected; U Oxycodone Screen Not Detected; U Phencyclidine Screen Not Detected
[2025-06-22 05:22] LABS: Anion Gap 7.0 mmol/L (3-11); Blood Urea Nitrogen 16.0 mg/dL (8-24); CO2, Blood 31.0 mmol/L (21-32); Calcium, Blood 8.8 mg/dL (8.5-10.1); Chloride, Blood 100.0 mmol/L (98-108); Creatinine, Blood 0.56 mg/dL (0.60-1.20); Glucose, Blood 166.0 mg/dL (70-99); Potassium, Blood 4.3 mmol/L (3.5-5.5); Sodium, Blood 134.0 mmol/L (136-145)
[2025-06-22] MEDS ORDERED: Levothyroxine Sodium 0.15 MG Tab PO SCH (06:00)
[2025-06-22 08:00] VITALS: BP 136/85
[2025-06-22] MEDS ORDERED: Enoxaparin 40 MG/0.4 ML SYR SC SCH (09:00)
[2025-06-22 12:00] VITALS: BP 146/83
[2025-06-22 15:51] VITALS: BP 149/83
--- NOTE | 2025-06-22 17:06 | NUR ---
PT SUMMARY: PT TOLERATING PO DIET. VITALS: HR AT 80S-90S. SBP AT 130S-140S. WITH SATS AT 93-97% ON NASAL CANNULA @ 4LPM. PT AWATING ROOM TO MEDICAL FLOOR. PT HAS BEEN COOPERATIVE AND VERBALIZING NEEDS. WILL REPORT TO ONCOMING SHIFT.
[2025-06-22 20:04] VITALS: BP 152/87
[2025-06-22] MEDS ORDERED: LORazepam 2 MG/ML 1ML Injection IV PRN ×3 (20:40)
[2025-06-22] MEDS ORDERED: Formoterol/Mometasone MDI 5/100 mcg 13 GM INH SCH (20:45)
[2025-06-23] VITALS (7 sets, daily range): BP systolic 96–149; BP diastolic 57–90
--- NOTE | 2025-06-23 06:10 | NUR ---
SHIFT SUMMARY: PT A&OX4 ANXIOUS BUT COOPERTIVE. VSS ON 2L NC. PT REPORTS HIS LAST DRINK WAS 06/16 AND HE DRINKS 2-3 "TALL BOY BEERS" EACH DAY. PT HAD NOTABLE TREMORS, DIAPHORETIC, AND C/O MODERATE HEADACHE. RESIDENT NOTIFIED AND CIWA PROTOCOL ORDERED. CIWA 6-11. MEDICATED PER EMAR. PT USES URINAL AT BEDSIDE AND IS A SBA TO BSC. BED IS LOW AND LOCKED. CALL LIGHT WITHIN REACH. CONTINUE WITH CURRENT PLAN OF CARE.
[2025-06-23 08:34] LABS: BASOPHILS ABSOLUTE AUTO 0.02 K/mm3 (0.00-0.23); BASOPHILS PERCENT AUTO 0 % (0-2); EOSINOPHILS ABSOLUTE AUTO 0.00 K/mm3 (0.00-0.68); EOSINOPHILS PERCENT AUTO 0 % (0-6); Hematocrit 41.4 % (37.0-53.0); Hemoglobin 13.2 g/dL (13.5-17.5); IMMATURE GRAN ABSOLUTE AUTO 0.12 K/mm3 (0.00-0.10); IMMATURE GRAN PERCENT AUTO 1 % (0-1); LYMPHOCYTES ABSOLUTE AUTO 0.70 K/mm3 (0.84-5.20); LYMPHOCYTES PERCENT AUTO 4 % (21-46); MONOCYTES ABSOLUTE AUTO 0.73 K/mm3 (0.16-1.47); MONOCYTES PERCENT AUTO 4 % (4-13); Mean Corpuscular HGB Conc 31.9 g/dL (31.5-36.5); Mean Corpuscular Volume 99 fL (80-100); NEUTROPHILS ABSOLUTE AUTO 16.17 K/mm3 (1.96-9.15); NEUTROPHILS PERCENT AUTO 91 % (41-73); NRBC ABSOLUTE 0.00 K/mm3 (0.00-0.02); NRBC Auto 0.0 /100 WBC (0.0-0.2); Platelet Count 269 K/mm3 (150-400); RDW Coefficient Variation 15.6 % (11.7-14.2); RDW Standard Deviation 56.7 fL (35.1-46.3)
[2025-06-23 09:22] LABS: Anion Gap 9.0 mmol/L (3-11); Blood Urea Nitrogen 12.0 mg/dL (8-24); CO2, Blood 29.0 mmol/L (21-32); Calcium, Blood 8.7 mg/dL (8.5-10.1); Chloride, Blood 106.0 mmol/L (98-108); Creatinine, Blood 0.64 mg/dL (0.60-1.20); Glucose, Blood 134.0 mg/dL (70-99); Potassium, Blood 4.3 mmol/L (3.5-5.5); Sodium, Blood 140.0 mmol/L (136-145)
--- NOTE | 2025-06-23 18:24 | NUR ---
SHIFT SUMMARY. PT HAS BEEN COOPERATIVE THE ENTIRE SHIFT, AND BEEN TOLERATING DIET AND MEDICATIONS. THERE WERE EPISODES OF ANXIETY AND SHORTNESS OF BREATHING AFTER TAKING HIS SHOWER. PT O2 WAS INCREASED TO 8LPM AND BROUGHT DOWN TO 4 LPM AFTER PT CALMED DOWN. ANXIETY PILLS WERE ALSO GIVEN. DOCTOR ALSO NOTIFIED IF PT CAN HAVE ANTI-DEPRESSANT MEDICATIONS REQUESTED BY PATIENT. AWAITING ORDERS. WILL REPORT TO ONCOMING SHIFT.
--- NOTE | 2025-06-23 22:53 | NUR ---
TRANSFER OF CARE: PT TRANSFERRED TO MEDICAL FLOOR AT 2245. REPORT GIVEN TO MEDICAL FLOOR RN.
[2025-06-23] MEDS ORDERED: NS 250 ML IV PRN (23:10)
[2025-06-24 04:05] VITALS: BP 111/72
--- NOTE | 2025-06-24 04:55 | NUR ---
TOOK OVER PATIENT CARE FROM DAIANA COLES. PATIENT HAS BEEN RESTING COMFORTBALY, VITALS STABLE.
[2025-06-24 07:19] VITALS: BP 140/89
[2025-06-24 07:53] LABS: BASOPHILS ABSOLUTE AUTO 0.01 K/mm3 (0.00-0.23); BASOPHILS PERCENT AUTO 0 % (0-2); EOSINOPHILS ABSOLUTE AUTO 0.00 K/mm3 (0.00-0.68); EOSINOPHILS PERCENT AUTO 0 % (0-6); Hematocrit 38.0 % (37.0-53.0); Hemoglobin 12.0 g/dL (13.5-17.5); IMMATURE GRAN ABSOLUTE AUTO 0.16 K/mm3 (0.00-0.10); IMMATURE GRAN PERCENT AUTO 1 % (0-1); LYMPHOCYTES ABSOLUTE AUTO 0.52 K/mm3 (0.84-5.20); LYMPHOCYTES PERCENT AUTO 3 % (21-46); MONOCYTES ABSOLUTE AUTO 0.43 K/mm3 (0.16-1.47); MONOCYTES PERCENT AUTO 3 % (4-13); Mean Corpuscular HGB Conc 31.6 g/dL (31.5-36.5); Mean Corpuscular Volume 100 fL (80-100); NEUTROPHILS ABSOLUTE AUTO 15.90 K/mm3 (1.96-9.15); NEUTROPHILS PERCENT AUTO 93 % (41-73); NRBC ABSOLUTE 0.00 K/mm3 (0.00-0.02); NRBC Auto 0.0 /100 WBC (0.0-0.2); Platelet Count 295 K/mm3 (150-400); RDW Coefficient Variation 15.8 % (11.7-14.2); RDW Standard Deviation 58.5 fL (35.1-46.3)
[2025-06-24 08:14] LABS: Anion Gap 8.0 mmol/L (3-11); Blood Urea Nitrogen 17.0 mg/dL (8-24); CO2, Blood 32.0 mmol/L (21-32); Calcium, Blood 8.7 mg/dL (8.5-10.1); Chloride, Blood 105.0 mmol/L (98-108); Creatinine, Blood 0.65 mg/dL (0.60-1.20); Glucose, Blood 133.0 mg/dL (70-99); Potassium, Blood 4.6 mmol/L (3.5-5.5); Sodium, Blood 140.0 mmol/L (136-145)
[2025-06-24] MEDS ORDERED: DULOXETINE HCL60 M1 PO (11:49)
[2025-06-24] MEDS ORDERED: LOSA50 PO (11:50)
[2025-06-24] MEDS ORDERED: EUTHYROX25 MC1 PO (11:51)
[2025-06-24 15:27] VITALS: BP 122/66
--- NOTE | 2025-06-24 17:47 | NUR ---
SHIFT SUMMARY: PATIENT A/OX4, ANXIOUS AT TIMES, PLEASANT AND COOPERATIVE c CARE. PATIENT CIWA SCORE OF 8. PATIENT MEDICATED X1 c PRN LIBRIUM AND X2 ATARAX FOR ANXIETY. PATIENT ALSO MEDICATED FOR L LEG PAIN AND NIELSEN PER EMAR c GOOD EFFECT. PATIENT LUNGS STILL WHEEZY, CURRENTLY ON 4L O2, NC SATTING 90-94%, ON TELEPHONE LINEMAN. PATIENT SAT UP TO CHAIR FOR ABOUT 4 HRS THIS SHIFT, TOLERATED WELL. GREAT APPETITE CONTINENT OF BLADDER AND USES URINAL INDEPENDENTLY. REDNESS TO L LEG HAS IMPROVE BASE, ON OUTLINE MARKING. PATIENT RECEIVED SCHEDULED MEDS PER EMAR. VITAL SIGNS REVIEWED. PATIENT HAS HAD NO COMPLAINTS OR DENIES NEW CONCERN THIS SHIFT. BED IN LOWEST POSITION. CALL LIGHT IN REACH.
[2025-06-24 19:17] VITALS: BP 139/89
--- NOTE | 2025-06-25 02:28 | NUR ---
ORIENTING NURSE DOCUMENTATION REVIEW: TREATMENTS, MEDICATIONS AND PATIENT CARE PROVIDED TO PATIENT AND DOCUMENTATION ENTERED BY ORIENTING NURSEAZIZA, OVERSEEN BY THIS RN.
[2025-06-25 03:15] VITALS: BP 134/74
--- NOTE | 2025-06-25 03:25 | NUR ---
SHIFT SUMMARY PATIENT A&OX4, ALTHOUGH AT TIMES BECAME ANXIOUS, CIWAS NO HIGHER THAN 8 AT THIS POINT IN THE SHIFT. PATIENT SLEPT INTERMITTENTLY DUE TO PATIENT ACCIDENTALLY DISLODGING IVS WHEN ASLEEP. DENIED RT TEATMENT DUE TO POOR SLEEP. BED LIGHT WITHIN REACH, BED AT LOWEST LEVEL, 2X BEDRAILS UP.
[2025-06-25 07:24] VITALS: BP 110/64
[2025-06-25 08:09] LABS: BASOPHILS ABSOLUTE AUTO 0.02 K/mm3 (0.00-0.23); BASOPHILS PERCENT AUTO 0 % (0-2); EOSINOPHILS ABSOLUTE AUTO 0.00 K/mm3 (0.00-0.68); EOSINOPHILS PERCENT AUTO 0 % (0-6); Hematocrit 36.1 % (37.0-53.0); Hemoglobin 11.3 g/dL (13.5-17.5); IMMATURE GRAN ABSOLUTE AUTO 0.21 K/mm3 (0.00-0.10); IMMATURE GRAN PERCENT AUTO 1 % (0-1); LYMPHOCYTES ABSOLUTE AUTO 0.48 K/mm3 (0.84-5.20); LYMPHOCYTES PERCENT AUTO 3 % (21-46); MONOCYTES ABSOLUTE AUTO 0.45 K/mm3 (0.16-1.47); MONOCYTES PERCENT AUTO 3 % (4-13); Mean Corpuscular HGB Conc 31.3 g/dL (31.5-36.5); Mean Corpuscular Volume 101 fL (80-100); NEUTROPHILS ABSOLUTE AUTO 13.63 K/mm3 (1.96-9.15); NEUTROPHILS PERCENT AUTO 92 % (41-73); NRBC ABSOLUTE 0.00 K/mm3 (0.00-0.02); NRBC Auto 0.0 /100 WBC (0.0-0.2); Platelet Count 285 K/mm3 (150-400); RDW Coefficient Variation 15.9 % (11.7-14.2); RDW Standard Deviation 59.7 fL (35.1-46.3)
[2025-06-25 08:30] LABS: Anion Gap 5.0 mmol/L (3-11); Blood Urea Nitrogen 21.0 mg/dL (8-24); CO2, Blood 33.0 mmol/L (21-32); Calcium, Blood 8.5 mg/dL (8.5-10.1); Chloride, Blood 105.0 mmol/L (98-108); Creatinine, Blood 0.66 mg/dL (0.60-1.20); Glucose, Blood 140.0 mg/dL (70-99); Potassium, Blood 4.4 mmol/L (3.5-5.5); Sodium, Blood 139.0 mmol/L (136-145)
[2025-06-25 15:18] VITALS: BP 123/79
[2025-06-25 15:51] VITALS: BP 126/77
--- NOTE | 2025-06-25 17:06 | NUR ---
SHIFT SUMMARY: PATIENT MEDICATED FOR ANXIETY AND FOR NIELSEN/L LEG PAIN PER EMAR c GOOD EFFECT. PATIENT MAX CIWA SCORE OF 8 THIS SHIFT. PATIENT LUNGS STILL WHEEZY T/O TO AUSCULTATION, ON 3.5-4L O2 VIA NC SATTING 94-97%, ON ASSISTANT REAL ESTATE MANAGER. PATIENT AMBULATED AROUND THE UNIT X2 USING A CANE c MINIMAL BLOCK AND CASE MAKER FROM MATH TEACHER, DENIES SOB, UP IN THE CHAIR FOR ABOUT 4 HRS, TOLERATED WELL. PATIENT HAS GREAT APPETITE, CONTINENT OF BLADDER AND USES URINAL INDEPENDENTLY. PATIENT EXPRESSESS HE IS "FEELING BETTER" AND WOULD LIKE TO GO HOME. PATIENT RECEIVED SCHEDULED MEDS PER EMAR. VITAL SIGNS REVIEWED. PATIENT A/OX4, ANXIOUS AT TIMES, PLEASANT, COOPERATIVE c CARE, CALLS APPROPRIATELY AND MAKE NEEDS KNOWN. BED IN LOWEST POSITION. CALL LIGHT IN REACH.
[2025-06-25 20:22] VITALS: BP 132/84
[2025-06-26 04:43] VITALS: BP 107/62
[2025-06-26 05:13] LABS: BASOPHILS ABSOLUTE AUTO 0.03 K/mm3 (0.00-0.23); BASOPHILS PERCENT AUTO 0 % (0-2); EOSINOPHILS ABSOLUTE AUTO 0.02 K/mm3 (0.00-0.68); EOSINOPHILS PERCENT AUTO 0 % (0-6); Hematocrit 35.7 % (37.0-53.0); Hemoglobin 11.1 g/dL (13.5-17.5); IMMATURE GRAN ABSOLUTE AUTO 0.30 K/mm3 (0.00-0.10); IMMATURE GRAN PERCENT AUTO 2 % (0-1); LYMPHOCYTES ABSOLUTE AUTO 1.34 K/mm3 (0.84-5.20); LYMPHOCYTES PERCENT AUTO 9 % (21-46); MONOCYTES ABSOLUTE AUTO 1.20 K/mm3 (0.16-1.47); MONOCYTES PERCENT AUTO 8 % (4-13); Mean Corpuscular HGB Conc 31.1 g/dL (31.5-36.5); Mean Corpuscular Volume 101 fL (80-100); NEUTROPHILS ABSOLUTE AUTO 12.04 K/mm3 (1.96-9.15); NEUTROPHILS PERCENT AUTO 81 % (41-73); NRBC ABSOLUTE 0.00 K/mm3 (0.00-0.02); NRBC Auto 0.0 /100 WBC (0.0-0.2); Platelet Count 276 K/mm3 (150-400); RDW Coefficient Variation 15.9 % (11.7-14.2); RDW Standard Deviation 58.9 fL (35.1-46.3)
[2025-06-26 05:40] LABS: Anion Gap 5.0 mmol/L (3-11); Blood Urea Nitrogen 23.0 mg/dL (8-24); CO2, Blood 33.0 mmol/L (21-32); Calcium, Blood 8.8 mg/dL (8.5-10.1); Chloride, Blood 107.0 mmol/L (98-108); Creatinine, Blood 0.69 mg/dL (0.60-1.20); Glucose, Blood 99.0 mg/dL (70-99); Potassium, Blood 4.2 mmol/L (3.5-5.5); Sodium, Blood 141.0 mmol/L (136-145)
--- NOTE | 2025-06-26 07:20 | NUR ---
END OF SHIFT SUMMARY: A&Ox4. PLEASANT AND COOPERATIVE WITH CARE. CALLS APPROPRIATELY AND IS ABLE TO ADVOCATE NEEDS EFFECTIVELY. VSS. BREATHING EVEN AND UNLABORED c 4LPM/NC; 6LPM/NC c ACTIVITY. WALKING HALLS PRN WHEN STAFF AVAILABLE. CONTINENT OF BOWEL AND BLADDER. TOLERATING DIET. MEDS WHOLE c FLUIDS. CONTINUES TO HAVE C / O ANXIETY AND USES WORDS CONSISTENT WITH CIWA QUESTIONNAIRE SUCH DISORIENTED AGITATED AND ANXIOUS . REQUESTING SOMETHING STRONGER THAN HYDROXYZINE FOR ANXIETY AND WILL DISCUSS c PROVIDER TODAY. BED IN LOWEST POSITION, CALL LIGHT WITHIN REACH, ALL NEEDS MET. REPORT TO ONCOMING NURSE.
[2025-06-26 07:52] VITALS: BP 116/68
[2025-06-26] MEDS ORDERED: CLOP75 PO (10:12)
[2025-06-26] MEDS ORDERED: GUAI600T33 PO (10:13)
[2025-06-26] MEDS ORDERED: PRED20 PO (10:15)
[2025-06-26] MEDS ORDERED: Cefadroxil500 MG PO (10:16)
--- NOTE | 2025-06-26 14:12 | NUR ---
DISCHARGE PT AOX4, COOPERATIVE, ABLE TO MAKE NEEDS KNOWN. PT ON 3L O2 WHICH IS BASELINE. TOELRATING MEDICATIONS, IND IN ROOM. THIS RN WENT OVER DC PAPERWORK WITH PT. IV WAS DC'D BY THIS RN WITHOUT EVENTS. PT DID REPORT HAVING MORE O2 TANKS IN CAR, THIS RN PROVIDED TEMPORARY O2 TANK UNTIL POLITICAL GEOGRAPHER COULD TRANSPORT PT TO CAR. TRANSPORTED VIA WC. ROOM STRIPPED.
== END 2025-06-26 14:04 | disposition home or self-care (01) | DRG 189 ==
LOC: ER 15:53 → PCU 20:53 → EDBEDREQ 21:03 → PCU 22:25 → MEDS 06-23 22:53 → ENPENDDIS 06-26 09:33 → MEDS 06-26 14:04
PROVIDERS: Internal Medicine; Nurse Practitioner Acute Care; Student in an Organized Health Care Education/Training Program; ADMIT Internal Medicine
PROC: HZ2ZZZZ Detoxification Services for Substance Abuse Treatment (ICD-10-PCS; principal; 2025-06-21)
PROC: 3E02340 Introduction of Influenza Vaccine into Muscle, Percutaneous Approach (ICD-10-PCS; 2025-06-21)
PROC: 3E03329 Introduction of Other Anti-infective into Peripheral Vein, Percutaneous Approach (ICD-10-PCS; 2025-06-22)
DX: J96.21 Acute and chronic respiratory failure with hypoxia (principal); J44.1 Chronic obstructive pulmonary disease with (acute) exacerbation; I50.22 Chronic systolic (congestive) heart failure; L03.116 Cellulitis of left lower limb; I42.9 Cardiomyopathy, unspecified; F10.239 Alcohol dependence with withdrawal, unspecified; E03.9 Hypothyroidism, unspecified; M81.0 Age-related osteoporosis without current pathological fracture; I11.0 Hypertensive heart disease with heart failure; Z96.643 Presence of artificial hip joint, bilateral; F17.210 Nicotine dependence, cigarettes, uncomplicated; F15.10 Other stimulant abuse, uncomplicated; E78.5 Hyperlipidemia, unspecified; I73.9 Peripheral vascular disease, unspecified; F32.A Depression, unspecified; F41.9 Anxiety disorder, unspecified; Z23 Encounter for immunization; Z98.62 Peripheral vascular angioplasty status; Z90.89 Acquired absence of other organs; Z98.890 Other specified postprocedural states; Z99.81 Dependence on supplemental oxygen; Z88.5 Allergy status to narcotic agent; Z91.030 Bee allergy status; Z79.899 Other long term (current) drug therapy; Z79.51 Long term (current) use of inhaled steroids; Z79.890 Hormone replacement therapy; Z87.19 Personal history of other diseases of the digestive system; Z90.49 Acquired absence of other specified parts of digestive tract
CPT/HCPCS: 36415; 71046; 80048; 80053; 82803; 83690; 83880; 84484; 85025; 85027; 87637; 90471; 93005; 93010; 93971; 94640; 94664; 94761; 94762; 96374; 96375; 99285-25; A9270; J0456; J0690; J1100; J1650; J1885; J2060; J2919; J3411; J7050; J7512

== ENCOUNTER 2025-07-27 01:43 | Inpatient (IN) | payer MEDICARE, OTHER ==
[~2025-07-27] VITALS: Ht 177.8 cm; Wt 97.4 kg
[~2025-07-27 01:43] MED LIST changes: +ATOR80 PO; +Cefadroxil500 MG PO; +DULOXETINE HCL60 M1 PO; +EUTHYROX25 MC1 PO; +GUAI600T33 PO; +LOSA50 PO
[2025-07-27] MEDS ORDERED: Albuterol 2.5 MG/3 ML VIAL INH SCH (01:50)
[2025-07-27 02:02] LABS: pH Blood Venous 7.26 (7.34-7.37)
[2025-07-27 02:10] LABS: BASOPHILS ABSOLUTE AUTO 0.06 K/mm3 (0.00-0.23); BASOPHILS PERCENT AUTO 1 % (0-2); EOSINOPHILS ABSOLUTE AUTO 0.22 K/mm3 (0.00-0.68); EOSINOPHILS PERCENT AUTO 3 % (0-6); Hematocrit 38.8 % (37.0-53.0); Hemoglobin 12.2 g/dL (13.5-17.5); IMMATURE GRAN ABSOLUTE AUTO 0.03 K/mm3 (0.00-0.10); IMMATURE GRAN PERCENT AUTO 0 % (0-1); LYMPHOCYTES ABSOLUTE AUTO 1.93 K/mm3 (0.84-5.20); LYMPHOCYTES PERCENT AUTO 23 % (21-46); MONOCYTES ABSOLUTE AUTO 0.78 K/mm3 (0.16-1.47); MONOCYTES PERCENT AUTO 9 % (4-13); Mean Corpuscular HGB Conc 31.4 g/dL (31.5-36.5); Mean Corpuscular Volume 102 fL (80-100); NEUTROPHILS ABSOLUTE AUTO 5.46 K/mm3 (1.96-9.15); NEUTROPHILS PERCENT AUTO 64 % (41-73); NRBC ABSOLUTE 0.00 K/mm3 (0.00-0.02); NRBC Auto 0.0 /100 WBC (0.0-0.2); Platelet Count 271 K/mm3 (150-400); RDW Coefficient Variation 15.0 % (11.7-14.2); RDW Standard Deviation 56.3 fL (35.1-46.3)
[2025-07-27] MEDS ORDERED: NS 1,000 ML IV SCH (02:25)
[2025-07-27] MEDS ORDERED: CefTRIAXone Sodium 1,000 MG in NS 50 ML IV ONE (02:25)
[2025-07-27 02:36] LABS: Alanine Aminotransfer (ALT/SGP 34.0 U/L (12-78); Albumin, Blood 3.5 g/dL (3.4-5.0); Albumin/Globulin Ratio 1.1 (0.8-1.8); Anion Gap 5.0 mmol/L (3-11); Aspartate Aminotrans (AST/SGOT 28.0 U/L (12-37); Bilirubin, Total 0.3 mg/dL (0.1-1.0); Blood Urea Nitrogen 16.0 mg/dL (8-24); CO2, Blood 33.0 mmol/L (21-32); Calcium, Blood 8.6 mg/dL (8.5-10.1); Chloride, Blood 105.0 mmol/L (98-108); Creatinine, Blood 0.72 mg/dL (0.60-1.20); Globulin, Blood 3.1 g/dL (2.2-4.0); Glucose, Blood 133.0 mg/dL (70-99); Potassium, Blood 4.2 mmol/L (3.5-5.5); Sodium, Blood 139.0 mmol/L (136-145); Total Protein, Blood 6.6 g/dL (6.4-8.2)
[2025-07-27 03:05] LABS: Influenza A, PCR NEGATIVE (NEGATIVE); Influenza B, PCR NEGATIVE (NEGATIVE); Resp Syncytial Virus, PCR NEGATIVE (NEGATIVE); SARS-Cov-2 (COVID-19) PCR, MMC NEGATIVE (NEGATIVE)
[2025-07-27] MEDS ORDERED: Ipratropium/Albuterol SulF 2.5-0.5MG/3 ML Amp INH PRN (03:40)
[2025-07-27] MEDS ORDERED: Ondansetron HCl 2 MG / ML 2ML Vial IV PRN (03:40)
[2025-07-27] MEDS ORDERED: FLU VACC TS2025-26(6MOS UP)/PF 45 MCG/0.5 ML SYRINGE IM SCH (03:45)
[2025-07-27 05:46] LABS: BASOPHILS ABSOLUTE AUTO 0.03 K/mm3 (0.00-0.23); BASOPHILS PERCENT AUTO 0 % (0-2); EOSINOPHILS ABSOLUTE AUTO 0.03 K/mm3 (0.00-0.68); EOSINOPHILS PERCENT AUTO 0 % (0-6); Hematocrit 35.0 % (37.0-53.0); Hemoglobin 11.0 g/dL (13.5-17.5); IMMATURE GRAN ABSOLUTE AUTO 0.05 K/mm3 (0.00-0.10); IMMATURE GRAN PERCENT AUTO 1 % (0-1); LYMPHOCYTES ABSOLUTE AUTO 0.45 K/mm3 (0.84-5.20); LYMPHOCYTES PERCENT AUTO 5 % (21-46); MONOCYTES ABSOLUTE AUTO 0.17 K/mm3 (0.16-1.47); MONOCYTES PERCENT AUTO 2 % (4-13); Mean Corpuscular HGB Conc 31.4 g/dL (31.5-36.5); Mean Corpuscular Volume 99 fL (80-100); NEUTROPHILS ABSOLUTE AUTO 7.62 K/mm3 (1.96-9.15); NEUTROPHILS PERCENT AUTO 91 % (41-73); NRBC ABSOLUTE 0.00 K/mm3 (0.00-0.02); NRBC Auto 0.0 /100 WBC (0.0-0.2); Platelet Count 217 K/mm3 (150-400); RDW Coefficient Variation 15.0 % (11.7-14.2); RDW Standard Deviation 55.0 fL (35.1-46.3)
[2025-07-27 06:01] LABS: Alanine Aminotransfer (ALT/SGP 32.0 U/L (12-78); Albumin, Blood 3.3 g/dL (3.4-5.0); Albumin/Globulin Ratio 1.2 (0.8-1.8); Anion Gap 6.0 mmol/L (3-11); Aspartate Aminotrans (AST/SGOT 21.0 U/L (12-37); Bilirubin, Total 0.2 mg/dL (0.1-1.0); Blood Urea Nitrogen 16.0 mg/dL (8-24); CO2, Blood 30.0 mmol/L (21-32); Calcium, Blood 8.2 mg/dL (8.5-10.1); Chloride, Blood 108.0 mmol/L (98-108); Creatinine, Blood 0.54 mg/dL (0.60-1.20); Globulin, Blood 2.8 g/dL (2.2-4.0); Glucose, Blood 122.0 mg/dL (70-99); Potassium, Blood 3.8 mmol/L (3.5-5.5); Sodium, Blood 140.0 mmol/L (136-145); Total Protein, Blood 6.1 g/dL (6.4-8.2)
[2025-07-27 06:02] LABS: Magnesium, Blood 2.1 mg/dL (1.6-2.4); Phosphorus, Blood 2.4 mg/dL (2.5-4.9)
[2025-07-27] MEDS ORDERED: Potassium Phosphate Dibasic 30 MM in Dextrose 5% 500 ML IV STA (06:54)
[2025-07-27 08:19] LABS: pH Blood Venous 7.35 (7.34-7.37)
[2025-07-27 08:45] VITALS: BP 139/100
[2025-07-27] MEDS ORDERED: Enoxaparin 40 MG/0.4 ML SYR SC SCH (09:00)
--- NOTE | 2025-07-27 10:25 | NUR ---
MD ROUNDED: BONDS ROUNDED AND SPOKE WITH PATIENT. PATIENT ASKING FOR FOOD & MD WAS MADE AWARE OF UPON ARRIVAL PATIENT WAS ON 3 LITERS VIA NASAL CANNULA, WALKING OVER TO THE NEW BED PATIENT DESATTED AND WAS SITTING IN 80'S. NASAL CANNULA WAS INCREASED TO 7 LITERS, PATIENT WAS NOT RECOVERING AFTER SEVERAL MINUTES. BIPAP WAS SET UP AND PATIENT WAS PLACED ON BIPAP WITH 14/7 AND 30% FIO2. PATIENT WAS ABLE TO RECOVER AND SATTING >92%. THIS RN ALSO NOTIFIED MD REGARDING PATIENTS NICOTINE PATCH FALLING OFF AND REQUESTING A NEW ONE ALONG WITH ANXIETY MEDICATIONS. HOME MED LIST IS COMPLETED AND MD WAS NOTIFIED, MD TO TAKE A LOOK AND ORDER HOME MEDICATIONS. MD GAVE VERBAL ORDER TO PLACE CIRCUIT DESIGNER CONSULT, ORDER PLACED AND THIS RN CALLED CIRCUIT DESIGNER. PATIENT CURRENTLY RESTING IN BED, EVEN & UNLABORED RESPIRATIONS AT REST WITH BIPAP MASK ON. HAS CALL LIGHT WITHIN REACH, BED IN LOWEST LOCKED POSITION.
--- NOTE | 2025-07-27 11:33 | NUR ---
NOTIFIED: THIS RN CALLED MD REGARDING PATIENT BEING SEEN BY PULMONOLIGST & PATIENT ASKING FOR HOME MEDICATIONS. PULM GAVE THE OK TO EAT AND PATIENT CAN HAVE BREAKS OFF THE BIPAP. MD CORONEL WILL ORDER MEDICATIONS AND NICOTINE PATCH, WELL DIET ORDER BUT GAVE VERBAL ORDER HE IS OK TO EAT AT THIS TIME.
[2025-07-27 11:47] VITALS: BP 137/80
[2025-07-27] MEDS ORDERED: Albuterol HFA200 ACT/6.7 GM INH INH PRN (12:20)
[2025-07-27] MEDS ORDERED: Formoterol/Mometasone MDI 5/100 mcg 13 GM INH SCH (12:20)
[2025-07-27] MEDS ORDERED: Ipratropium Bromide INH 0.02% 0.5 mg/2.5ML Vial INH SCH (12:20)
--- NOTE | 2025-07-27 12:36 | NUR ---
MD CALLED: THIS RN CALLED MD REGARDING PATIENT REQEUSTING THE NICOTINE PATCH TO START TODAY INSTEAD OF TOMORROW MORNING. MD GAVE VERBAL ORDER TO START TODAY AND REGULAR DIET ORDER TO BE STARTED WELL.
--- NOTE | 2025-07-27 13:33 | NUR ---
MD CORONEL CALLED: THIS RN SPOKE WITH MD REGARDING PATIENT REOPRTING 8/10 LUNG & RIB PAIN AND WOULD LIKE SOME TYLENOL. TELEPHONE ORDERS WERE GIVEN AND PLACED.
[2025-07-27 14:40] VITALS: BP 167/69
--- NOTE | 2025-07-27 14:43 | NUR ---
TRANSFER NOTE: PATIENT IS ALERT AND ORIENTED X4 & COOPERATIVE WITH HIS CARE, IS ABLE TO MAKE NEEDS KNOWN, USES CALL LIGHT APPRORIATELY. PATIENT SATTING >92% ON 3-5 LITERS VIA NASAL CANNULA. 3 LITERS IS BASELINE BUT DOES NEED TO BE BUMPED UP ON OXYGEN WITH EXERTION, WILL DESAT DOES TAKE SEVERAL MINUTES TO RECOVER.PATIENT IS ON TELE SHOWING SINUS RYTHM WITH RATE IN 70-80'S. PATIENT TOOK ALL PERSONAL BELONGINGS AND NOTIFIED FAMILY OF THE CHANGE IN ROOMS WELL. PATIENT WAS TAKEN OVER TO PCU 13 VIA WHEELCHAIR AND REPORT WAS GIVEN TO RECEIVING RN PRIOR TO ARRIVAL.
--- NOTE | 2025-07-27 17:39 | NUR ---
SHIFT SUMMARY PT A/OX4 AND COOPERATIVE OF CARE SINCE ARRIVING TO UNIT. PT ABLETO EXPRESS NEEDS AND CALLS APPROPIATE. PT VSS WITH O2 SATS IN THE 90'S ON 3L NC. NO REPORT OF CHEST PAIN/PRESSURE SINCE ARRIVING TO UNIT. PT REPORTS SOB WITH EXPERTION, RECOVERS WHEN AT REST. PT CAN GET WINDED WHEN TALKING ALOT. PT TOLERATING PO INTAKE WELL. USES URINAL INDEPENDENTLY, TOLERATES WELL. PT ANXIOUS AT TIMES, TREATING PER EMAR.PT EDUSCATED ON PURPOSE OF BIPAP AND NCOURAGED TO WEAR BIPAP WHILE SLEEPING.
[2025-07-27 20:36] VITALS: BP 142/72
[2025-07-27] MEDS ORDERED: CefTRIAXone Sodium 1,000 MG in NS 100 ML IV SCH (21:00)
[2025-07-27 23:32] VITALS: BP 133/72
[2025-07-28 04:47] VITALS: BP 142/85
[2025-07-28 05:07] LABS: BASOPHILS ABSOLUTE AUTO 0.01 K/mm3 (0.00-0.23); BASOPHILS PERCENT AUTO 0 % (0-2); EOSINOPHILS ABSOLUTE AUTO 0.00 K/mm3 (0.00-0.68); EOSINOPHILS PERCENT AUTO 0 % (0-6); Hematocrit 36.1 % (37.0-53.0); Hemoglobin 11.5 g/dL (13.5-17.5); IMMATURE GRAN ABSOLUTE AUTO 0.04 K/mm3 (0.00-0.10); IMMATURE GRAN PERCENT AUTO 0 % (0-1); LYMPHOCYTES ABSOLUTE AUTO 0.72 K/mm3 (0.84-5.20); LYMPHOCYTES PERCENT AUTO 8 % (21-46); MONOCYTES ABSOLUTE AUTO 0.20 K/mm3 (0.16-1.47); MONOCYTES PERCENT AUTO 2 % (4-13); Mean Corpuscular HGB Conc 31.9 g/dL (31.5-36.5); Mean Corpuscular Volume 98 fL (80-100); NEUTROPHILS ABSOLUTE AUTO 8.20 K/mm3 (1.96-9.15); NEUTROPHILS PERCENT AUTO 89 % (41-73); NRBC ABSOLUTE 0.00 K/mm3 (0.00-0.02); NRBC Auto 0.0 /100 WBC (0.0-0.2); Platelet Count 235 K/mm3 (150-400); RDW Coefficient Variation 14.9 % (11.7-14.2); RDW Standard Deviation 53.8 fL (35.1-46.3)
[2025-07-28 05:48] LABS: Alanine Aminotransfer (ALT/SGP 25.0 U/L (12-78); Albumin, Blood 3.2 g/dL (3.4-5.0); Albumin/Globulin Ratio 1.2 (0.8-1.8); Anion Gap 7.0 mmol/L (3-11); Aspartate Aminotrans (AST/SGOT 12.0 U/L (12-37); Bilirubin, Total 0.2 mg/dL (0.1-1.0); Blood Urea Nitrogen 15.0 mg/dL (8-24); CO2, Blood 30.0 mmol/L (21-32); Calcium, Blood 8.7 mg/dL (8.5-10.1); Chloride, Blood 104.0 mmol/L (98-108); Creatinine, Blood 0.57 mg/dL (0.60-1.20); Globulin, Blood 2.7 g/dL (2.2-4.0); Glucose, Blood 145.0 mg/dL (70-99); Potassium, Blood 3.8 mmol/L (3.5-5.5); Sodium, Blood 137.0 mmol/L (136-145); Total Protein, Blood 5.9 g/dL (6.4-8.2)
[2025-07-28] MEDS ORDERED: Levothyroxine Sodium 0.15 MG Tab PO SCH (06:00)
--- NOTE | 2025-07-28 06:04 | NUR ---
SHIFT SUMMARY PT A&O X4, ABLE TO MAKE NEEDS KNOWN, MOVING ALL EXTREMITIES WITH PURPOSE, ABLE TO REPOSITION SELF IN BED. CONTINUOUS SPO2, SPO2 GREATER THAN 88% BIPAP 14/7/ 30%/ PT TOLERATED WELL T/O THE MAJORITY OF THE NIGHT, TAKING BREAKS WITH 4L O2 VIA NC, LUNGS CLEAR T/O AND DIMINISHED IN THE BASES, NO SIGNS OF RESPIRATORY DISTRESS NOTED THIS SHIFT. CONTINUOUS TELE MONITORING, SINUS S 70-90 S, BP STABLE WITH MAP GREATER THAN 65, CAP REFILL WNL, PULSES PRESENT T/O, PT DENIES CHEST P/P T/O THIS SHIFT, LEFT LEG APPEARS MORE SWOLLEN THAN RIGHT/ MD AWARE/ PT REPORTS RECENT PROCEDURE TO THAT LEG. BOWEL TONES PRESENT IN ALL 4Q, PT DENIES NAUSEA/ PAIN/ FEELINGS OF CONSTIPATION. VOIDING IND, URINE YELLOW IN COLOR. BED LOWEST POSITION, CALL LIGHT IN REACH, AWAITING TO GIVE REPORT TO ONCOMING RN.
[2025-07-28 07:37] VITALS: BP 154/90
[2025-07-28] MEDS ORDERED: DULoxetine HCL 60 MG Capsule DR PO SCH (09:00)
--- NOTE | 2025-07-28 11:30 | NUR ---
TANNING [employer]KER NOTIFIED BREAK NURSE THAT PT HAD A BRIEF RUN OF VTACH, 11 BEATS. BREAK NURSE REPORTED THAT PT WAS ASYMPTOMATIC AND THAT THE PT WAS VIDING DURING RUN OF VTACH. CALLED AND NOTIFIED.
[2025-07-28 11:39] VITALS: BP 146/74
[2025-07-28 16:08] VITALS: BP 153/89
--- NOTE | 2025-07-28 18:47 | NUR ---
SHIFT SUMMARY PT A/OX4 AND COOPERATIVE OF CARE. PT ABLE TO EXPRESS NEEDS AND CALLED APPROPIATE. PT LESS ANXIOUS TODAY COMPARED TO YESTERDAY. PT VSS THROUGHOUT SHIFT WITH O2 SATS IN THE 90'S ON 3L NC , WHICH IS PT'S BASELINE. NO REPORT OF CHEST PIAN/PRESSURE THROUGHOUT SHIFT. PT REPORTED SLIGHT SOB WIT EXERTION BUT STATES THAT IS HIS BASELINE. PT CONTINUED ON IV STEROIDS AND IV ABX, SEE EMAR. PT INDEPENDENT IN BED AND SBA WHEN UP IN ROOM, TOLERATED WELL.
[2025-07-28] MEDS ORDERED: NS 250 ML IV PRN (20:10)
[2025-07-28 21:34] VITALS: BP 150/86
[2025-07-29 00:53] VITALS: BP 159/80
[2025-07-29 04:09] LABS: BASOPHILS ABSOLUTE AUTO 0.02 K/mm3 (0.00-0.23); BASOPHILS PERCENT AUTO 0 % (0-2); EOSINOPHILS ABSOLUTE AUTO 0.00 K/mm3 (0.00-0.68); EOSINOPHILS PERCENT AUTO 0 % (0-6); Hematocrit 36.1 % (37.0-53.0); Hemoglobin 11.5 g/dL (13.5-17.5); IMMATURE GRAN ABSOLUTE AUTO 0.08 K/mm3 (0.00-0.10); IMMATURE GRAN PERCENT AUTO 1 % (0-1); LYMPHOCYTES ABSOLUTE AUTO 0.88 K/mm3 (0.84-5.20); LYMPHOCYTES PERCENT AUTO 7 % (21-46); MONOCYTES ABSOLUTE AUTO 0.65 K/mm3 (0.16-1.47); MONOCYTES PERCENT AUTO 5 % (4-13); Mean Corpuscular HGB Conc 31.9 g/dL (31.5-36.5); Mean Corpuscular Volume 98 fL (80-100); NEUTROPHILS ABSOLUTE AUTO 11.83 K/mm3 (1.96-9.15); NEUTROPHILS PERCENT AUTO 88 % (41-73); NRBC ABSOLUTE 0.00 K/mm3 (0.00-0.02); NRBC Auto 0.0 /100 WBC (0.0-0.2); Platelet Count 254 K/mm3 (150-400); RDW Coefficient Variation 15.1 % (11.7-14.2); RDW Standard Deviation 54.6 fL (35.1-46.3)
[2025-07-29 04:19] VITALS: BP 136/73
[2025-07-29 04:39] LABS: Alanine Aminotransfer (ALT/SGP 27.0 U/L (12-78); Albumin, Blood 3.2 g/dL (3.4-5.0); Albumin/Globulin Ratio 1.2 (0.8-1.8); Anion Gap 7.0 mmol/L (3-11); Aspartate Aminotrans (AST/SGOT 17.0 U/L (12-37); Bilirubin, Total 0.2 mg/dL (0.1-1.0); Blood Urea Nitrogen 22.0 mg/dL (8-24); CO2, Blood 30.0 mmol/L (21-32); Calcium, Blood 8.6 mg/dL (8.5-10.1); Chloride, Blood 104.0 mmol/L (98-108); Creatinine, Blood 0.63 mg/dL (0.60-1.20); Globulin, Blood 2.7 g/dL (2.2-4.0); Glucose, Blood 128.0 mg/dL (70-99); Potassium, Blood 3.6 mmol/L (3.5-5.5); Sodium, Blood 137.0 mmol/L (136-145); Total Protein, Blood 5.9 g/dL (6.4-8.2)
--- NOTE | 2025-07-29 06:14 | NUR ---
Shift Summary No acute changes. Pt wore BiPaP t/o the night. SPO2 with BiPaP was greater than 94% for the most part. On tele with no events. Pt did request tylenol once for headache which he stated brought pain to 0/10. He slept comfortably t/o most of the night on BiPaP.
[2025-07-29 09:00] VITALS: BP 152/90
[2025-07-29 11:01] VITALS: BP 137/83
[2025-07-29] MEDS ORDERED: AZIT500 PO (12:07)
[2025-07-29] MEDS ORDERED: Cefpodoxime Pr100 MG PO (12:08)
[2025-07-29] MEDS ORDERED: PRED20 PO (12:12)
--- NOTE | 2025-07-29 13:10 | NUR ---
DISCHARGE NOTE PT IS A/O X4 ABLE TO MAKE NEEDS KNOWN AND CAN MOVE EXTREMITIES EQUALLY AND BILATERALLY. PT IS AFEBRILE. PT IS ON 3L NC WHICH IS BASELINE. ALL PT BELONINGS LEFT WITH PT. DISCHARGE INSTRUCTIONS ARE PROVIDED WT PT. PT LEFT UNIT AT 1245.
== END 2025-07-29 12:53 | disposition home or self-care (01) | DRG 189 ==
LOC: ER 01:43 → ICUE 02:44 → PCU 02:44 → ERHOLD 02:44 → ICUE 07:36 → PCU 14:47
PROVIDERS: Emergency Medicine; Family Medicine; ADMIT Internal Medicine
PROC: 5A09357 Assistance with Respiratory Ventilation, Less than 24 Consecutive Hours, Continuous Positive Airway Pressure (ICD-10-PCS; principal; 2025-07-27)
PROC: 3E03329 Introduction of Other Anti-infective into Peripheral Vein, Percutaneous Approach (ICD-10-PCS; 2025-07-27)
DX: J96.21 Acute and chronic respiratory failure with hypoxia (principal); J18.9 Pneumonia, unspecified organism; J44.0 Chronic obstructive pulmonary disease with (acute) lower respiratory infection; J44.1 Chronic obstructive pulmonary disease with (acute) exacerbation; J96.22 Acute and chronic respiratory failure with hypercapnia; R22.42 Localized swelling, mass and lump, left lower limb; F41.9 Anxiety disorder, unspecified; I50.9 Heart failure, unspecified; I73.9 Peripheral vascular disease, unspecified; E03.9 Hypothyroidism, unspecified; E78.5 Hyperlipidemia, unspecified; I11.0 Hypertensive heart disease with heart failure; I70.1 Atherosclerosis of renal artery; F17.210 Nicotine dependence, cigarettes, uncomplicated; Z99.81 Dependence on supplemental oxygen; Z71.6 Tobacco abuse counseling; Z88.8 Allergy status to other drugs, medicaments and biological substances; Z88.5 Allergy status to narcotic agent; Z79.02 Long term (current) use of antithrombotics/antiplatelets; Z79.51 Long term (current) use of inhaled steroids; Z79.890 Hormone replacement therapy
CPT/HCPCS: 36415; 71045; 80053; 82803; 83605; 83735; 83880; 84100; 84484; 85025; 87637; 93005; 93010; 93971; 94640; 94644; 94660; 94664; 94762; 96374; 99285-25; A9270; J0456; J0696; J1650; J2919; J7030; J7050; J7060